=== PATIENT | male | born 1940 | race Caucasian/White ===

== ENCOUNTER 2017-05-26 10:01 | Day surgery (SDC) | payer MEDICARE, OTHER ==
[~2017-05-26 10:01] MED LIST: KETOROLAC TROMETHAMINE 0.45% 4 DROP/0.4 ML DROPERETTE OS PRN
[2017-05-26] MEDS ORDERED: EPINEPHRINE INJ/PF 1 MG/1 ML AMPULE ONE (10:12)
[2017-05-26] MEDS ORDERED: LIDOCAINE 1% INJ-PF (10 MG/ML) 30 ML SDV ONE (10:12)
[2017-05-26] MEDS ORDERED: CHONDR SU A NA/HYALUR INTRAOC KIT (SURGICARE) ONE (10:12)
[2017-05-26] MEDS: TROPICAMIDE 1% OPH SOLN 3 ML OS PRN ×3 (10:18→10:42)
[2017-05-26] MEDS: CYCLOPENTOLATE 0.2%/PHENYLEPHRINE 1% OPH SOLN 2 ML OS PRN ×3 (10:19→10:42)
[2017-05-26] MEDS: BESIFLOXACIN HCL 0.6% OPH SUSP 5 ML BOTTLE OS PRN ×3 (10:19→11:14)
[2017-05-26] MEDS: TETRACAINE HCL 0.5% OPH SOLN 2 ML OS PRN ×3 (10:20→10:54)
[2017-05-26] MEDS ORDERED: MIDAZOLAM 2 MG/2 ML INJ ONE (10:41)
--- NOTE | 2017-05-26 20:43 | [facility] OPERATIVE REPORT E ---
[facility] Operative Report NAME: MARY MEYER AGE: 76Y DATE OF SURGERY: 05/26/2017 ROOM: PREOPERATIVE DIAGNOSIS: CATARACT, LEFT EYE. POSTOPERATIVE DIAGNOSIS: CATARACT, LEFT EYE. OPERATION: Cataract extraction with intraocular lens implant of the left eye. SURGEON: DILAN YEBOAH M.D. ANESTHESIA: Topical. PROCEDURE: After obtaining appropriate consent, the patient's left eye was prepped and draped in sterile fashion as well as the surgeon in a sterile manner and cataract surgery was started. First a paracentesis blade was used to make a small side-port incision. Viscoelastic was used to inflate the anterior chamber. Next a 2.4 mm incision was made with the paracentesis blade. A continuous capsulorrhexis incision was made using a cystotome and Utrata forceps. Following this hydrodissection was carried out to make the lens fully loose and mobile and it was rotated 90 degrees. Following this, a nfiodn-pru-puvhffj technique was used to phacoemulsify the lens with a CDE of 5.35. The remaining cortex was removed with irrigation/aspiration. Provisc was instilled into the capsular bag to inflate the bag. A SN60WF, 19.5 diopter lens was placed. The remaining viscoelastic material was removed with irrigation/aspiration. Following this, a 10-0 nylon suture was used to close the incision and it was found to be watertight. Vigamox was instilled in the eye and a protective shield was placed over the eye. The patient returned to the postoperative recovery in stable condition. DICTATING PHYSICIAN: DILAN YEBOAH M.D. [id number] PHY#: [id number] 2015 ID: [id number] JOB#: [id number] ACCT: [id number] cc:DILAN YEBOAH M.D. >
--- NOTE | 2017-05-26 20:49 | [facility] DISCHARGE SUMMARY E ---
[facility] Discharge Summary NAME: MARY MEYER AGE: 76Y ADMITTED: 05/26/2017 DISCHARGED: 05/26/2017 HOSPITAL COURSE: This is 76-year-old patient who underwent cataract extraction of the left eye. DIAGNOSIS: CATARACT, LEFT EYE. He underwent surgery because he was having difficulty reading small print. DISCHARGE INSTRUCTIONS: He is to be on a regular diet. No bending at his waist, no heavy lifting. He should use Besivance, Ilevro, and Durezol at 3 p.m. and 8 p.m. and sleep with a rigid shield. I will see him for his 1 day postoperative tomorrow. DICTATING PHYSICIAN: DILAN YEBOAH M.D. [id number] PHY#: [id number] 2015 ID: [id number] JOB#: [id number] ACCT: [id number] cc:DILAN YEBOAH M.D. >
== END 2017-05-26 12:14 | disposition home or self-care (01) ==
LOC: SC 10:01
PROVIDERS: ATTEND Internal Medicine
PROC: 08RK3JZ Replacement of Left Lens with Synthetic Substitute, Percutaneous Approach (ICD-10-PCS; principal; 2017-05-26 11:30)
DX: H25.812 Combined forms of age-related cataract, left eye (principal); I10 Essential (primary) hypertension; F17.210 Nicotine dependence, cigarettes, uncomplicated; Z79.1 Long term (current) use of non-steroidal anti-inflammatories (NSAID)
CPT/HCPCS: 66984; V2632; J2250; J3490 ×2; A9270; J0171; 142

== ENCOUNTER 2017-06-30 07:06 | Day surgery (SDC) | payer MEDICARE, OTHER ==
[~2017-06-30 07:06] MED LIST changes: +KETOROLAC TROMETHAMINE 0.45% 4 DROP/0.4 ML DROPERETTE OD PRN; -KETOROLAC TROMETHAMINE 0.45% 4 DROP/0.4 ML DROPERETTE OS PRN
[2017-06-30] MEDS: CYCLOPENTOLATE 0.2%/PHENYLEPHRINE 1% OPH SOLN 2 ML OD PRN ×3 (07:55→08:15)
[2017-06-30] MEDS: BESIFLOXACIN HCL 0.6% OPH SUSP 5 ML BOTTLE OD PRN ×3 (07:55→08:51)
[2017-06-30] MEDS: TROPICAMIDE 1% OPH SOLN 3 ML OD PRN ×3 (07:55→08:15)
[2017-06-30] MEDS: TETRACAINE HCL 0.5% OPH SOLN 2 ML OD PRN ×3 (07:56→08:30)
[2017-06-30] MEDS ORDERED: CHONDR SU A NA/HYALUR INTRAOC KIT (SURGICARE) ONE (07:57)
[2017-06-30] MEDS ORDERED: LIDOCAINE 1% INJ-PF (10 MG/ML) 30 ML SDV ONE (07:57)
[2017-06-30] MEDS ORDERED: EPINEPHRINE INJ/PF 1 MG/1 ML AMPULE ONE (07:57)
[2017-06-30] MEDS ORDERED: MIDAZOLAM 2 MG/2 ML INJ ONE (08:12)
[2017-06-30] MEDS ORDERED: FENTANYL CITRATE INJ/PF 100 MCG/2 ML AMPUL ONE (08:12)
--- NOTE | 2017-06-30 19:34 | [facility] DISCHARGE SUMMARY E ---
[facility] Discharge Summary NAME: MARY MEYER AGE: 76Y ADMITTED: 06/30/2017 DISCHARGED: 06/30/2017 HOSPITAL COURSE: This is a 76-year-old patient who underwent cataract extraction of the right eye. DIAGNOSIS: CATARACT, RIGHT EYE. He underwent surgery because he was having difficulty with increased glare with bright lights. DISCHARGE INSTRUCTIONS: He should be on a regular diet. No bending at his waist, no heavy lifting. He should use Besivance, Ilevro, and Durezol at 3 p.m. and 8 p.m. and sleep with a rigid shield. I will see him for his 1 day postoperative tomorrow. DICTATING PHYSICIAN: DILAN YEBOAH M.D. [id number] [id number] PHY#: [id number] ID: [id number] JOB#: [id number] ACCT: [id number] cc:DILAN YEBOAH M.D. >
--- NOTE | 2017-06-30 19:34 | [facility] OPERATIVE REPORT E ---
[facility] Operative Report NAME: MARY MEYER AGE: 76Y DATE OF SURGERY: 06/30/2017 ROOM: PREOPERATIVE DIAGNOSIS: CATARACT, RIGHT EYE. POSTOPERATIVE DIAGNOSIS: CATARACT, RIGHT EYE. OPERATION: Cataract extraction with intraocular lens implant of the right eye. SURGEON: DILAN YEBOAH M.D. ANESTHESIA: Topical. PROCEDURE: After obtaining appropriate consent, the patient's right eye was prepped and draped in sterile fashion as well as the surgeon in a sterile manner and cataract surgery was started. First a paracentesis blade was used to make a small side-port incision. Viscoelastic was used to inflate the anterior chamber. Next a 2.4 mm incision was made with the paracentesis blade. A continuous capsulorrhexis incision was made using a cystotome and Utrata forceps. Following this hydrodissection was carried out to make the lens fully loose and mobile and it was rotated 90 degrees. Following this, a uxskpk-jul-wdaeuxl technique was used to phacoemulsify the lens with a CDE of 8.44. The remaining cortex was removed with irrigation/aspiration. Provisc was instilled into the capsular bag to inflate the bag. A SN60WF, 20.0 diopter lens was placed. The remaining viscoelastic material was removed with irrigation/aspiration. Following this, a 10-0 nylon suture was used to close the incision and it was found to be watertight. Vigamox was instilled in the eye and a protective shield was placed over the eye. The patient returned to the postoperative recovery in stable condition. DICTATING PHYSICIAN: DILAN YEBOAH M.D. [id number] [id number] PHY#: [id number] ID: [id number] JOB#: [id number] ACCT: [id number] cc:DILAN YEBOAH M.D. >
== END 2017-06-30 09:33 | disposition home or self-care (01) ==
LOC: SC 07:06
PROVIDERS: ATTEND Internal Medicine
PROC: 08RJ3JZ Replacement of Right Lens with Synthetic Substitute, Percutaneous Approach (ICD-10-PCS; principal; 2017-06-30 08:30)
DX: H25.811 Combined forms of age-related cataract, right eye (principal)
CPT/HCPCS: 66984; V2632; J2250; J3490 ×2; A9270; J0171; J3010; 142

== ENCOUNTER 2019-07-03 02:05 | Emergency (ER) | payer MEDICARE, OTHER ==
[2019-07-03 02:29] VITALS: BP 123/58
[2019-07-03 03:01] LABS: HEMATOCRIT 40.4 % (37.9-51.0); HEMOGLOBIN 13.8 g/dL (13.5-17.0); MEAN CORPUSCULAR HEMOGLOBIN 32.5 pg (27.0-33.4); MEAN CORPUSCULAR HGB CONC 34.3 g/dL (32.0-36.0); MEAN CORPUSCULAR VOLUME 95 fl (80-97); PLATELET COUNT 299 10^3/uL (150-450); RED BLOOD COUNT 4.26 10^6/uL (4.35-5.55); RED CELL DISTRIBUTION WIDTH 13.7 % (11.5-14.0); WHITE BLOOD COUNT 22.3 10^3/uL (4.0-10.5)
[2019-07-03 03:04] LABS: APPEARANCE,URINE CLOUDY; BILIRUBIN,URINE NEGATIVE (NEGATIVE); COLOR,URINE YELLOW; GLUCOSE, URINE NEGATIVE (NEGATIVE); KETONES,URINE NEGATIVE (NEGATIVE); LEUKOCYTE ESTERASE,URINE LARGE (NEGATIVE); NITRITE,URINE POSITIVE (NEGATIVE); PROTEIN,URINE 100 mg/dL (NEGATIVE); URINE SPECIFIC GRAVITY 1.011; UROBILINOGEN,URINE NEGATIVE mg/dL (<2.0)
[2019-07-03 03:18] LABS: ALBUMIN 3.2 g/dL (3.5-5.0); ALKALINE PHOSPHATASE 87 U/L (38-126); ANION GAP 11 (5-19); ASPARTATE AMINO TRANSFERASE 20 U/L (17-59); BILIRUBIN,DIRECT 0.2 mg/dL (0.0-0.4); BILIRUBIN,TOTAL 0.8 mg/dL (0.2-1.3); BLOOD UREA NITROGEN 22 mg/dL (7-20); CARBON DIOXIDE 28 mmol/L (22-30); CHLORIDE 100 mmol/L (98-107); GLUCOSE 109 mg/dL (75-110); POTASSIUM 4.1 mmol/L (3.6-5.0); TOTAL PROTEIN 6.4 g/dL (6.3-8.2)
[2019-07-03 03:32] LABS: ABSOLUTE LYMPHOCYTES# (MANUAL) 1.6 10^3/uL (0.5-4.7); ABSOLUTE MONOCYTES # (MANUAL) 0.9 10^3/uL (0.1-1.4); BASOPHILS % (MANUAL) 0 % (0-2); EOSINOPHILS % (MANUAL) 0 % (0-6); LYMPHOCYTES % (MANUAL) 7 % (13-45); MONOCYTES % (MANUAL) 4 % (3-13); SEGMENTED NEUTROPHILS % (MAN) 89 % (42-78); TOTAL CELLS COUNTED 100
[2019-07-03 03:33] LABS: PLATELET COMMENT ADEQUATE
== END 2019-07-03 03:15 | disposition left against medical advice (07) ==
LOC: ER 02:05
DX: Z53.21 Procedure and treatment not carried out due to patient leaving prior to being seen by health care provider (principal)
CPT/HCPCS: 36415; 80053; 81001; 83690; 85025

== ENCOUNTER 2019-08-15 11:28 | Inpatient (IN) | payer MEDICARE, OTHER ==
--- NOTE | 2019-08-15 12:27 | ER Document Report ---
ED Medical Screen (RME) - General Chief Complaint: Back Pain Stated Complaint: BACK AND SHOULDER PAIN Time Seen by Provider: 08/15/19 12:22 Primary Care Provider: MARY VILLEDA [Primary Care Provider] - Follow up as needed Mode of Arrival: Ambulatory Information source: Patient Notes: 78-year-old male presented to ED for complaint of pain to right shoulder and upper back. He states he has had this pain for about 6 months. He states he has not fallen or injured it. He states he has not followed up with his primary care yet. He is alert oriented respirations regular nonlabored speaking in full sentences. Patient states he is also lost significant amount of weight in the long last week. He states he just has no appetite and cannot eat. He states he used to pop a lot of Motrin and ate the lining of his stomach so now he has a lot of problems with his stomach. I have greeted and performed a rapid initial assessment of this patient. A comprehensive ED assessment and evaluation of the patient, analysis of test results and completion of medical decision making process will be conducted by an additional ED providers. TRAVEL OUTSIDE OF THE [place] IN LAST 30 DAYS: No - Related Data Allergies/Adverse Reactions: No Known Allergies Allergy (Verified 08/15/19 12:24) Past Medical History - Past Medical History Cardiac Medical History: Reports: Hx Hypertension Denies: Hx Heart Attack Pulmonary Medical History: Denies: Hx Asthma Neurological Medical History: Denies: Hx Cerebrovascular Accident, Hx Seizures GI Medical History: Reports: Hx Ulcer - SURG. Denies: Hx Hepatitis, Hx Hiatal Hernia Infectious Medical History: Denies: Hx Hepatitis Past Surgical History: Denies: Hx Open Heart Surgery, Hx Pacemaker Physical Exam - Vital signs Vitals: Temp Pulse Resp BP Pulse Ox 97.6 F 106 H 18 140/63 H 100 08/15/19 11:33 08/15/19 11:33 08/15/19 11:33 08/15/19 11:33 08/15/19 11:33 Course - Vital Signs Vital signs: Temp Pulse Resp BP Pulse Ox 97.6 F 106 H 18 140/63 H 100 08/15/19 11:33 08/15/19 11:33 08/15/19 11:33 08/15/19 11:33 08/15/19 11:33 Doctor's Discharge - Discharge Referrals: LOCALMD,NO [Primary Care Provider] - Follow up as needed
[2019-08-15 13:03] LABS: HEMOGLOBIN 11.9 g/dL (13.5-17.0); MEAN CORPUSCULAR HEMOGLOBIN 29.6 pg (27.0-33.4); MEAN CORPUSCULAR HGB CONC 33.2 g/dL (32.0-36.0); MEAN CORPUSCULAR VOLUME 89 fl (80-97); PLATELET COUNT 418 10^3/uL (150-450); RED BLOOD COUNT 4.03 10^6/uL (4.35-5.55); RED CELL DISTRIBUTION WIDTH 15.1 % (11.5-14.0)
[2019-08-15 13:10] LABS: APPEARANCE,URINE SLIGHTLY-CLOUDY; BILIRUBIN,URINE NEGATIVE (NEGATIVE); COLOR,URINE AMBER; GLUCOSE, URINE NEGATIVE (NEGATIVE); KETONES,URINE TRACE mg/dL (NEGATIVE); PROTEIN,URINE 30 mg/dL (NEGATIVE); URINE SPECIFIC GRAVITY 1.013
[2019-08-15 13:19] LABS: ALBUMIN 3.3 g/dL (3.5-5.0); ALKALINE PHOSPHATASE 93 U/L (38-126); ANION GAP 10 (5-19); ASPARTATE AMINO TRANSFERASE 26 U/L (17-59); BILIRUBIN,DIRECT 0.3 mg/dL (0.0-0.4); BLOOD UREA NITROGEN 23 mg/dL (7-20); CALCIUM 8.9 mg/dL (8.4-10.2); CARBON DIOXIDE 27 mmol/L (22-30); CHLORIDE 94 mmol/L (98-107); GLUCOSE 100 mg/dL (75-110); POTASSIUM 4.6 mmol/L (3.6-5.0); TOTAL PROTEIN 6.9 g/dL (6.3-8.2)
--- NOTE | 2019-08-15 13:25 | RADIOLOGY REPORT (SQ) ---
EXAM DESCRIPTION: SHOULDER RIGHT 2 OR MORE VIEWS COMPLETED DATE/TIME: 08/15/2019 1:12 pm REASON FOR STUDY: pain increasing to neck back andshoulder COMPARISON: None. NUMBER OF VIEWS: Three views. TECHNIQUE: Internal rotation, external rotation, and Y view images acquired of the right shoulder. LIMITATIONS: None. FINDINGS: MINERALIZATION: Osteopenia. BONES: No acute fracture. No worrisome bone lesions. Acromioclavicular and glenohumeral osteoarthro giovani JOINTS: No dislocation. Decreased subacromial space. VISUALIZED LUNGS AND RIBS: No pneumothorax. No rib fracture. SOFT TISSUES: No radiopaque foreign body. OTHER: No other significant finding. IMPRESSION: No acute bony abnormality. 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 TECHNICAL DOCUMENTATION: JOB ID: [id number] [employer]- All Rights Reserved Reading location - IP/workstation name: [email or web address]
--- NOTE | 2019-08-15 13:27 | RADIOLOGY REPORT (SQ) ---
EXAM DESCRIPTION: T SPINE AP/LAT COMPLETED DATE/TIME: 08/15/2019 1:12 pm REASON FOR STUDY: pain increaseing to neck back andshoulder COMPARISON: None. NUMBER OF VIEWS: Two views. TECHNIQUE: AP and lateral radiographic images acquired of the thoracic spine. LIMITATIONS: None. FINDINGS: MINERALIZATION: Osteopenia. ALIGNMENT: Exaggerated thoracic kyphosis. VERTEBRAE: No definite compression fracture. Prominent anterolateral osteophyte at the midthoracic s pine. DISCS: Multilevel disc height loss. HARDWARE: None in the spine. MEDIASTINUM AND SOFT TISSUES: Normal heart size and aortic contour. Vascular calcifications. VISUALIZED LUNG EVANS: Clear. OTHER: No other significant finding. IMPRESSION: No definite acute bony abnormality. Degenerative changes with multilevel disc height loss and prominent anterolateral osteophyte at the m idthoracic spine. Decreased osseous mineralization. TECHNICAL DOCUMENTATION: JOB ID: [id number] [employer]- All Rights Reserved Reading location - IP/workstation name: [email or web address]
--- NOTE | 2019-08-15 13:39 | RADIOLOGY REPORT (SQ) ---
EXAM DESCRIPTION: CERV SP 3 VIEW OR LESS COMPLETED DATE/TIME: 08/15/2019 1:12 pm REASON FOR STUDY: pain increaseing to neck back andshoulder COMPARISON: None. NUMBER OF VIEWS: Three views. TECHNIQUE: AP, lateral and odontoid radiographic images acquired of the cervical spine. LIMITATIONS: C7 not well evaluated on the lateral projection. FINDINGS: MINERALIZATION: Decreased. ALIGNMENT: Straightening of the normal cervical lordosis. VERTEBRAE: No definite fracture. DISCS: Multilevel disc height loss and osteophytosis greatest at C5-6. Multilevel facet and uncovert ebral hypertrophy. HARDWARE: None in the spine. SOFT TISSUES: Vascular calcifications. No discrete masses. OTHER: No other significant finding. IMPRESSION: 1. No definite acute bony abnormality of the cervical spine. 2. Moderate to severe multilevel degenerative change greatest at C5-6. Multilevel facet arthropathy . TECHNICAL DOCUMENTATION: JOB ID: [id number] [employer]- All Rights Reserved Reading location - IP/workstation name: [email or web address]
[2019-08-15 13:40] LABS: ABSOLUTE LYMPHOCYTES# (MANUAL) 2.8 10^3/uL (0.5-4.7); ABSOLUTE MONOCYTES # (MANUAL) 1.2 10^3/uL (0.1-1.4); BASOPHILS % (MANUAL) 0 % (0-2); EOSINOPHILS % (MANUAL) 0 % (0-6); LYMPHOCYTES % (MANUAL) 11 % (13-45); MONOCYTES % (MANUAL) 5 % (3-13); SEGMENTED NEUTROPHILS % (MAN) 83 % (42-78); TOTAL CELLS COUNTED 100
[2019-08-15 13:41] LABS: PLATELET COMMENT ADEQUATE; SCHISTOCYTES SLIGHT
[2019-08-15 13:42] LABS: ANISOCYTOSIS SLIGHT
[2019-08-15 13:44] LABS: OVALOCYTES SLIGHT
--- NOTE | 2019-08-15 17:16 | ER Document Report ---
ED General - General Chief Complaint: Back Pain Stated Complaint: BACK AND SHOULDER PAIN Time Seen by Provider: 08/15/19 12:22 Primary Care Provider: MARY VILLEDA [NO DEEPTI MD] - Follow up as needed Mode of Arrival: Ambulatory Notes: Patient is a 78-year-old male with a history of COPD who presents emergency department with multiple complaints. Patient reports he has had right shoulder and left lower back pain for quite a while. Patient unsure how long. Patient denies fall or trauma. Patient also reports having a significant weight loss over the past month and a half of greater than 20 pounds. Patient reports a decreased appetite. Patient reports he does smoke about 2-1/2 packs of cigarettes per day. Patient reports he is also had some urinary frequency. Patient denies fever. Patient reports he did vomit yesterday after eating a meal but that he has tolerated foods and liquids since then. Patient reports a productive cough with a significant amount of clear sputum that has increased over the past month. Patient reports he does drink occasional alcohol but does not do any recreational drugs. TRAVEL OUTSIDE OF THE [place] IN LAST 30 DAYS: No - Related Data Allergies/Adverse Reactions: No Known Allergies Allergy (Verified 08/15/19 12:24) Home Medications: unknown Past Medical History - General Information source: Patient - Social History Smoking Status: Current Every Day Smoker Chew tobacco use (# tins/day): No Frequency of alcohol use: None Drug Abuse: None Lives with: Alone Family History: None Patient has suicidal ideation: No Patient has homicidal ideation: No - Past Medical History Cardiac Medical History: Reports: None Denies: Hx Heart Attack Pulmonary Medical History: Reports: Hx COPD Denies: Hx Asthma EENT Medical History: Reports: None Neurological Medical History: Reports: None. Denies: Hx Cerebrovascular Accident, Hx Seizures Endocrine Medical History: Reports: None Renal/ Medical History: Reports: None Malignancy Medical History: Reports None GI Medical History: Reports: Hx Ulcer - SURG. Denies: Hx Hepatitis, Hx Hiatal Hernia Musculoskeletal Medical History: Reports None Skin Medical History: Reports None Psychiatric Medical History: Reports: None Traumatic Medical History: Reports: None Infectious Medical History: Reports: None. Denies: Hx Hepatitis Past Surgical History: Denies: Hx Open Heart Surgery, Hx Pacemaker Review of Systems - Review of Systems Constitutional: See HPI EENT: No symptoms reported Cardiovascular: No symptoms reported Respiratory: See HPI Gastrointestinal: See HPI Genitourinary: See HPI Male Genitourinary: No symptoms reported Musculoskeletal: See HPI Skin: No symptoms reported Hematologic/Lymphatic: No symptoms reported Neurological/Psychological: No symptoms reported Physical Exam - Vital signs Vitals: Temp Pulse Resp BP Pulse Ox 97.6 F 106 H 18 140/63 H 100 08/15/19 11:33 08/15/19 11:33 08/15/19 11:33 08/15/19 11:33 08/15/19 11:33 Interpretation: Tachycardic - Slightly tachycardic initially with a heart rate of 106. - Notes Notes: GENERAL: Well-appearing, well-nourished and in no acute distress. HEAD: Atraumatic, normocephalic. EYES: Pupils equal round and reactive to light, extraocular movements intact, sclera anicteric, conjunctiva are normal. ENT: Nares patent, oropharynx clear without exudates. Moist mucous membranes. NECK: Normal range of motion, supple without lymphadenopathy or JVD. LUNGS: Breath sounds clear to auscultation bilaterally and equal. No wheezes r ales or rhonchi. HEART: Regular rate and rhythm without murmurs, rubs or gallops. ABDOMEN: Soft, nontender, normoactive bowel sounds. Healed midline vertical scar noted to the mid to upper abdomen. No guarding, no rebound. No masses appreciated. BACK: Patient has very mild tenderness to the cervical and thoracic spine. Midline patient does not have lumbar midline tenderness. Patient does have left lower lumbar muscle tenderness with palpation. No saddle anesthesia, normal distal neurovascular exam. There is no CVA tenderness. GENITOURINARY: Deferred. EXTREMITIES: Patient has limited range of motion to the right shoulder, states that he is unable to raise his arm above the shoulder level due to pain. Patient has diffuse mild tenderness to the right shoulder. There is no erythema, edema or ecchymosis. No obvious deformity. No edema. NEUROLOGICAL: Cranial nerves II through XII grossly intact. Normal speech, normal gait. PSYCH: Normal mood, normal affect. SKIN: Warm, Dry, normal turgor, no rashes or lesions noted. Course - Re-evaluation Re-evalutation: 08/15/19 17:42 I did speak with Dr. Castro who will come down to the ER for admission. I did re- evaluate the patient spine which did not show a significant tenderness to the cervical, thoracic, lumbar spine. Patient states that most of his pain and is in his right shoulder. My concern for admission is that the patient appears to be slightly dehydrated with an elevated creatinine, UTI, elevated white count of 23.0. Patient is nontoxic-appearing. I have ordered repeat vital signs. Patient aware of admission. Patient did ask if he was able to go outside and smoke a cigarette. Patient reports she smokes about 2-1/2 packs of cigarettes per day. I did inform him that he is not medically cleared and he cannot go outside. Patient was understanding and calm at this time. Will order initial dose of IV antibiotics for the UTI, IV fluids as well as a nicotine patch. During my evaluation patient became tearful and stated that over the past 2 y ears he has felt a feeling of "not wanting to live." Patient reports 2 years ago his did pass away. Patient reports he does go to his primary care physician in [place] but has never mentioned this to them. Patient reports he does not have thoughts of hurting himself or others. Patient denies suicidal plan. Patient reports he would never hurt himself. Patient denies a history of suicidal attempt. Dr. Castro, the admitting was made aware. 08/15/19 18:16 Dr. Castro to admit. 08/15/19 18:28 Mental health consult placed. - Vital Signs Vital signs: Temp Pulse Resp BP Pulse Ox 97.6 F 106 H 18 140/63 H 100 08/15/19 11:33 08/15/19 11:33 08/15/19 11:33 08/15/19 11:33 08/15/19 11:33 - Laboratory Result Diagrams: 08/15/19 12:35 08/15/19 12:35 Laboratory results interpreted by me: 08/15/19 08/15/19 08/15/19 12:35 12:35 12:35 WBC 23.0 H RBC 4.03 L Hgb 11.9 L Hct 36.0 L RDW 15.1 H Seg Neuts % (Manual) 83 H Lymphocytes % (Manual) 11 L Abs Neuts (Manual) 19.1 H Sodium 131.3 L Chloride 94 L BUN 23 H Creatinine 1.60 H Est GFR ( Amer) 51 L Est GFR (MDRD) Non-Af 42 L Albumin 3.3 L Urine Protein 30 H Urine Ketones TRACE H Urine Urobilinogen 2.0 H Leukocyte Esterase Rfl MODERATE H 08/15/19 17:49 Patient does have a leukocytosis of 23. Patient's BUN and creatinine are slightly elevated. Sodium is low at 131.3. Patient's urinalysis does show trace ketones with a moderate amount of leukocytes with 80 WBCs and 3+ bacteria. Laboratory 08/15/19 08/15/19 08/15/19 12:35 12:35 12:35 WBC 23.0 H RBC 4.03 L Hgb 11.9 L Hct 36.0 L MCV 89 MCH 29.6 MCHC 33.2 RDW 15.1 H Plt Count 418 Lymph % (Auto) Not Reportable [place] % (Auto) Not Reportable Eos % (Auto) Not Reportable Baso % (Auto) Not Reportable Absolute Neuts (auto) Not Reportable Absolute Lymphs (auto) Not Reportable Absolute Monos (auto) Not Reportable Absolute Eos (auto) Not Reportable Absolute Basos (auto) Not Reportable Total Counted 100 Seg Neutrophils % Not Reportable Seg Neuts % (Manual) 83 H Lymphocytes % (Manual) 11 L Atypical Lymphs % 1 Monocytes % (Manual) 5 Eosinophils % (Manual) 0 Basophils % (Manual) 0 Abs Neuts (Manual) 19.1 H Abs Lymphs (Manual) 2.8 Abs Monocytes (Manual) 1.2 Absolute Eos (Manual) 0.0 Abs Basophils (Manual) 0.0 Platelet Comment ADEQUATE Anisocytosis SLIGHT Ovalocytes SLIGHT Schistocytes SLIGHT Sodium 131.3 L Potassium 4.6 Chloride 94 L Carbon Dioxide 27 Anion Gap 10 BUN 23 H Creatinine 1.60 H Est GFR ( Amer) 51 L Est GFR (MDRD) Non-Af 42 L Glucose 100 Calcium 8.9 Total Bilirubin 1.0 Direct Bilirubin 0.3 Neonat Total Bilirubin Not Reportable Neonat Direct Bilirubin Not Reportable Neonat Indirect Bili Not Reportable AST 26 ALT 14 Alkaline Phosphatase 93 Total Protein 6.9 Albumin 3.3 L Lipase 142.2 Urine Color RON Urine Appearance SLIGHTLY-CLOUDY Urine pH 5.0 Ur Specific [place] 1.013 Urine Protein 30 H Urine Glucose (UA) NEGATIVE Urine Ketones TRACE H Urine Blood NEGATIVE Urine Nitrite (Reflex) NEGATIVE Urine Bilirubin NEGATIVE Urine Urobilinogen 2.0 H Leukocyte Esterase Rfl MODERATE H Urine RBC (Auto) 2 U Hyaline Cast (Auto) 13 Urine Bacteria (Auto) 3+ Urine WBC (Reflex) 80 Urine Mucus (Auto) MOD Urine Ascorbic Acid NEGATIVE - Diagnostic Test Radiology reviewed: Reports reviewed Radiology results interpreted by me: 08/15/19 17:49 Cervical Spine X-Ray 08/15/19 12:28 IMPRESSION: 1. No definite acute bony abnormality of the cervical spine. 2. Moderate to severe multilevel degenerative change greatest at C5-6. Multilevel facet arthropathy. Shoulder X-Ray 08/15/19 12:28 IMPRESSION: No acute bony abnormality. 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 Thoracic Spine X-Ray 08/15/19 12:28 IMPRESSION: No definite acute bony abnormality. Degenerative changes with multilevel disc height loss and prominent anterolateral osteophyte at the midthoracic spine. Decreased osseous mineralization. Discharge - Discharge Clinical Impression: Chronic right shoulder pain, Smoking addiction UTI (urinary tract infection) Qualifiers: Urinary tract infection type: site unspecified Hematuria presence: without hematuria Qualified Code(s): N39.0 - Urinary tract infection, site not specified Chronic back pain Qualifiers: Back pain location: thoracic back pain Back pain laterality: midline Qualified Code(s): M54.6 - Pain in thoracic spine; G89.29 - Other chronic pain Leukocytosis Qualifiers: Leukocytosis type: unspecified Qualified Code(s): D72.829 - Elevated white blood cell count, unspecified COPD (chronic obstructive pulmonary disease) Qualifiers: COPD type: unspecified COPD Qualified Code(s): J44.9 - Chronic obstructive pulmonary disease, unspecified Condition: Stable Disposition: ADMITTED OBSERVATION Admitting Provider: Gloria (Hospitalist) Unit Admitted: Medical Floor Referrals: LOCALMD,NO [NO LOCAL MD] - Follow up as needed
[2019-08-15] MEDS ORDERED: CEFTRIAXONE 1 GM/D5W RTU 1 GM/50 ML RTUPB IV ONE (17:33)
[2019-08-15] MEDS ORDERED: NORMAL SALINE 1000 ML 1,000 ML IV ONE (17:33)
[2019-08-15] MEDS ORDERED: NICOTINE 21 MG/24 HR PATCH.TD24 TD ONE (17:35)
--- NOTE | 2019-08-15 18:06 | RADIOLOGY REPORT (SQ) ---
EXAM DESCRIPTION: CHEST 2 VIEWS COMPLETED DATE/TIME: 08/15/2019 5:46 pm REASON FOR STUDY: productive cough, weight loss COMPARISON: None. EXAM PARAMETERS: NUMBER OF VIEWS: two views TECHNIQUE: Digital Frontal and Lateral radiographic views of the chest acquired. RADIATION DOSE: NA LIMITATIONS: none FINDINGS: LUNGS AND PLEURA: No opacities, masses or pneumothorax. No pleural effusion. MEDIASTINUM AND HILAR STRUCTURES: Slightly unusual appearance in the right hilum. On the lateral vie w there is opacification overlying the spine that has the appearance of the large osteophytes. HEART AND VASCULAR STRUCTURES: Heart normal size. No evidence for failure. BONES: No acute findings. HARDWARE: None in the chest. OTHER: No other significant finding. IMPRESSION: No acute cardiopulmonary findings. Unusual appearance of the right hilum may be seconda ry to large thoracic spine osteophytes. Consider CT if clinically indicated. TECHNICAL DOCUMENTATION: JOB ID: [id number] [employer]- All Rights Reserved Reading location - IP/workstation name: [email or web address]
[2019-08-15] MEDS ORDERED: IPRATROPIUM/ALBUTEROL 0.5-2.5 MG/3 ML AMPUL NEB PRN (18:32)
--- NOTE | 2019-08-15 18:36 | PDOC H&P ---
History of Present Illness Patient complains of: multiple complaints History of Present Illness: MARY MEYER is a 78 year old male with a past medical history of COPD not on home O2, history of hyperthyroidism with prior thyroidectomy and chronic heavy cigarette smoking who is presenting with multiple complaints. Upon encounter, patient appears comfortable in room air. When asked what his main symptoms are reasons of going to the ER, he says that he has been having chronic worsening of his right shoulder pain and left flank pain. He says that he has been having right shoulder pain for more than 3 months now and it has progressed to the point that he can barely abduct his right shoulder. He says that he also has been dealing with this left flank pain for the past 5 months and this is been slowly worsening as well to the point that he cannot lay on his left side. He denies pain along the spine. There is no spinal tenderness on palpation. He reports he also has been having urinary frequency for the past 4 weeks. He denies hematuria, dysuria or urgency. He denies having fever but reports he has been having chills for the past 3 months. He says he has chills occasionally at night but also has chills when he wakes up in the morning. He reports he has lost 60 pounds over the past 3 to 4 months. He admits to having poor oral intake for the past few weeks. When asked why this is so, he says he just does not have the appetite. He denies he has depressed mood. Clarified the statement from the staff when he remarked that he does not have drive to continue living, and he commented he meant he does not care if he dies but verbalizes he does not have any suicidal ideation nor thoughts of harming himself. He denies any hallucination or delusions or homicidal ideations. When asked why this is so, he says that he has lived his life and he does not particularly care if he rejoins his who has more than 2 years ago. He does not think he is depressed. He verbalizes he actually has a directive and is a DNR/DNI. He verbalizes he does not want any form of resuscitation including chest compressions, defibrillation or mechanical ventilation if the need arises. He also verbalizes he does not want to ever be sent or discharged to a senior care or a long-term facility in the future. He says his stepdaughter, Jillian De Los Santos in [place], [place] is his surrogate decision severo jacob. He also reports of minimally productive cough for the past 2 to 3 months. He says he used to smoke more than 2 packs of cigarettes a day but has now gone down to 1 and half pack a day. He only occasionally drinks beer or wine. He denies recreational drug use. In the ER, work-up was remarkable for leukocytosis and acute renal failure. UA did show pyuria and bacteriuria. X- rays showed degenerative changes and chronic rotator cuff loss. Past Medical History Cardiac Medical History: Reports: None, Hypertension Denies: Myocardial Infarction Pulmonary Medical History: Reports: Chronic Obstructive Pulmonary Disease (COPD) Denies: Asthma EENT Medical History: Reports: None Neurological Medical History: Reports: None Denies: Seizures Endocrine Medical History: Reports: None Renal/ Medical History: Reports: None Malignancy Medical History: Reports: None GI Medical History: Denies: Hepatitis, Hiatal Hernia Musculoskeltal Medical History: Reports: None Skin Medical History: Reports: None Psychiatric Medical History: Reports: None Traumatic Medical History: Reports: None Hematology: Denies: Anemia, Sickle Cell Disease Infectious Medical History: Reports: None Past Surgical History Past Surgical History: Denies: Pacemaker Social History Lives with: Alone Smoking Status: Current Every Day Smoker Electronic Cigarette use?: No Family History Family History: None Parental Family History Reviewed: Yes - no premature CAD Children Family History Reviewed: No Sibling(s) Family History Reviewed.: No Medication/Allergy Allergies/Adverse Reactions: No Known Allergies Allergy (Verified 08/15/19 12:24) Review of Systems All systems: reviewed and no additional remarkable complaints except as stated - as mentioned in HPI Physical Exam Vital Signs: Temp Pulse Resp BP Pulse Ox 97.6 F 106 H 18 140/63 H 100 08/15/19 11:33 08/15/19 11:33 08/15/19 11:33 08/15/19 11:33 08/15/19 11:33 Intake & Output 08/14/19 08/15/19 08/16/19 06:59 06:59 06:59 Weight 161 lb 6.054 oz General appearance: PRESENT: no acute distress, well-developed, well-nourished Head exam: PRESENT: atraumatic, normocephalic Eye exam: PRESENT: conjunctiva pink, EOMI, PERRLA. ABSENT: scleral icterus Ear exam: PRESENT: normal external ear exam Mouth exam: PRESENT: moist, tongue midline Neck exam: ABSENT: carotid bruit, JVD, lymphadenopathy, thyromegaly Respiratory exam: PRESENT: clear to auscultation samuel. ABSENT: rales, rhonchi, wheezes Cardiovascular exam: PRESENT: RRR. ABSENT: diastolic murmur, rubs, systolic murmur Pulses: PRESENT: normal dorsalis pedis pul GI/Abdominal exam: PRESENT: normal bowel sounds, soft. ABSENT: distended, guarding, mass, organolmegaly, rebound, tenderness Rectal exam: PRESENT: deferred Neurological exam: PRESENT: alert, awake, oriented to person, oriented to place, oriented to time, oriented to situation, CN II-XII grossly intact. ABSENT: motor sensory deficit Results Laboratory Results: 08/15/19 12:35 08/15/19 12:35 08/15/19 08/15/19 08/15/19 12:35 12:35 12:35 WBC 23.0 H RBC 4.03 L Hgb 11.9 L Hct 36.0 L MCV 89 MCH 29.6 MCHC 33.2 RDW 15.1 H Plt Count 418 Seg Neutrophils % Not Reportable Sodium 131.3 L Potassium 4.6 Chloride 94 L Carbon Dioxide 27 Anion Gap 10 BUN 23 H Creatinine 1.60 H Est GFR ( Amer) 51 L Glucose 100 Calcium 8.9 Total Bilirubin 1.0 AST 26 Alkaline Phosphatase 93 Total Protein 6.9 Albumin 3.3 L Lipase 142.2 Urine Color RON Urine Appearance SLIGHTLY-CLOUDY Urine pH 5.0 Ur Specific [place] 1.013 Urine Protein 30 H Urine Glucose (UA) NEGATIVE Urine Ketones TRACE H Urine Blood NEGATIVE Urine RBC (Auto) 2 Impressions: Cervical Spine X-Ray 08/15/19 12:28 IMPRESSION: 1. No definite acute bony abnormality of the cervical spine. 2. Moderate to severe multilevel degenerative change greatest at C5-6. Multilevel facet arthropathy. Shoulder X-Ray 08/15/19 12:28 IMPRESSION: No acute bony abnormality. 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 Thoracic Spine X-Ray 08/15/19 12:28 IMPRESSION: No definite acute bony abnormality. Degenerative changes with multilevel disc height loss and prominent anterolateral osteophyte at the midthoracic spine. Decreased osseous mineralization. Chest X-Ray 08/15/19 17:34 IMPRESSION: No acute cardiopulmonary findings. Unusual appearance of the right hilum may be secondary to large thoracic spine osteophytes. Consider CT if clinically indicated. Assessment and Plan - Diagnosis (1) Acute renal failure Is this a current diagnosis for this admission?: Yes Plan: Possibly prerenal as patient does report he has been eating intravenous in the past several weeks. He does complain of chronic left flank pain. Will pursue a CT of the abdomen and pelvis to rule out obstructive causes. (2) COPD (chronic obstructive pulmonary disease) Qualifiers: COPD type: unspecified COPD Qualified Code(s): J44.9 - Chronic obstructive pulmonary disease, unspecified Is this a current diagnosis for this admission?: Yes Plan: Not in exacerbation. Breathing treatments as needed. (3) UTI (urinary tract infection) Qualifiers: Urinary tract infection type: site unspecified Hematuria presence: without hematuria Qualified Code(s): N39.0 - Urinary tract infection, site not specified Is this a current diagnosis for this admission?: Yes Plan: Continue IV Rocephin. Urine culture sent. (4) Chronic right shoulder pain Is this a current diagnosis for this admission?: Yes - Time Time Spent with patient: 25-34 minutes
--- NOTE | 2019-08-15 18:51 | ADVANCED CARE ---
- Diagnosis (1) Acute renal failure Diagnosis Current: Yes (2) COPD (chronic obstructive pulmonary disease) Diagnosis Current: Yes (3) UTI (urinary tract infection) Diagnosis Current: Yes (4) Chronic right shoulder pain Diagnosis Current: Yes Resuscitation Status: Do Not Resuscitate Discussion: He verbalizes he actually has a directive and is a DNR/DNI. He verbalizes he does not want any form of resuscitation including chest compressions, defibrillation or mechanical ventilation if the need arises. He also verbalizes he does not want to ever be sent or discharged to a prison or a long-term facility in the future. He says his stepdaughter, Jillian De Los Santos in [place], [place] is his surrogate decision maker.
--- NOTE | 2019-08-15 19:19 | RADIOLOGY REPORT (SQ) ---
EXAM DESCRIPTION: CT CHEST WITHOUT COMPLETED DATE/TIME: 08/15/2019 6:48 pm REASON FOR STUDY: cough, wt loss COMPARISON: Chest x-ray 08/15/2019 TECHNIQUE: CT scan performed of the chest without intravenous contrast. Images reviewed with lung, soft tissue and bone windows. Reconstructed coronal and sagittal MPR images reviewed. All images st ored on PACS. All CT scanners at this facility use dose modulation, iterative reconstruction, and/or weight based d osing when appropriate to reduce radiation dose to as low as reasonably achievable (ALARA). [facility]: Dose Right [facility]: CareDose [facility]: Dose Right [facility]: Teradose 4D [facility]: [employer] RADIATION DOSE: CT Rad equipment meets quality standard of care and radiation dose reduction techniq ues were employed. CTDIvol: 9.2 mGy. DLP: 651 mGy-cm. mGy. LIMITATIONS: No technical limitations. FINDINGS: LUNGS AND PLEURA: The lungs are hyperexpanded. There is no infiltrate, effusion, or signi ficant mass. A 4 mm pulmonary nodule is seen in the right lower lobe laterally on image 37 series 4. HILAR AND MEDIASTINAL STRUCTURES: No identified masses or abnormal nodes. No obvious aneurysm. HEART AND VASCULAR STRUCTURES: No aneurysm. No pericardial effusion. UPPER ABDOMEN: See separate report of the CT of the abdomen. THYROID AND OTHER SOFT TISSUES: No masses. No adenopathy. BONES: There is a very large osteophytes in the midthoracic spine. HARDWARE: None in the chest. OTHER: No other significant findings. IMPRESSION: Chronic lung changes. Thoracic spondylosis. 4 mm right pulmonary nodule. COMMENT: F[place]CHNER CRITERIA FOR FOLLOW-UP OF PULMONARY NODULES Incidentally detected new nodules in persons 35 or older. HIGH RISK: History of smoking or other known risk factors. <6 mm single solid nodule: LOW RISK: no routine followup. HIGH RISK: optional CT 12 mo. TECHNICAL DOCUMENTATION: JOB ID: [id number] Quality ID # [id number]: Final reports with documentation of one or more dose reduction techniques (e.g., Au tomated exposure control, adjustment of the mA and/or kV according to patient size, use of iterative reconstruction technique) 2010 [employer]- All Rights Reserved Reading location - IP/workstation name: [email or web address]
--- NOTE | 2019-08-15 19:29 | RADIOLOGY REPORT (SQ) ---
EXAM DESCRIPTION: CT ABD/PELVIS NO ORAL OR IV COMPLETED DATE/TIME: 08/15/2019 6:48 pm REASON FOR STUDY: acute renal deja COMPARISON: None. TECHNIQUE: CT scan of the abdomen and pelvis performed without intravenous or oral contrast. Images reviewed with lung, soft tissue, and bone windows. Reconstructed coronal and sagittal MPR images revi ewed. All images stored on PACS. All CT scanners at this facility use dose modulation, iterative reconstruction, and/or weight based d osing when appropriate to reduce radiation dose to as low as reasonably achievable (ALARA). [facility]: Dose Right [facility]: CareDose [facility]: Dose Right [facility]: Teradose 4D [facility]: Shoulder Tap RADIATION DOSE: mGy. LIMITATIONS: None. FINDINGS: LOWER CHEST: No significant findings. No nodules or infiltrates. NON-CONTRASTED LIVER, SPLEEN, ADRENALS: Evaluation limited by lack of IV contrast. No identified sign ificant masses. PANCREAS: No masses. No peripancreatic inflammatory changes. GALLBLADDER: No identified stones by CT criteria. No inflammatory changes to suggest cholecystitis. RIGHT KIDNEY AND URETER: No suspicious masses. There is hydronephrosis and hydroureter to the midpor tion of the ureter. No obstructing calculus is seen. LEFT KIDNEY AND URETER: No suspicious masses. Assessment limited by lack of IV contrast. No signifi cant calcifications. No hydronephrosis or hydroureter. AORTA AND RETROPERITONEUM: No aneurysm. No retroperitoneal masses or adenopathy. BOWEL AND PERITONEAL CAVITY: There is radiopaque suture associated with the right colon. No obvious bowel mass. Mild sigmoid diverticulosis. APPENDIX: Not identified. PELVIS, BLADDER, AND ABDOMINAL WALL:Urinary bladder suggests slight thickening of the wall. There is nodular protrusion of the prostate gland into the base of the bladder. BONES: Degenerative disc disease and spondylosis. No osseous lesion. OTHER: No other significant finding. IMPRESSION: Right hydronephrosis with dilatation of the proximal ureter. No obstructing calculus is seen. Mild diverticulosis. Slight thickening of the bladder wall may be secondary to bladder outle t obstruction or cystitis. Correlate clinically. There is nodular protrusion of the prostate gland into the base of the bladder. COMMENT: Quality ID # [id number]: Final reports with documentation of one or more dose reduction techniques (e.g., Automated exposure control, adjustment of the mA and/or kV according to patient size, use of iterative reconstruction technique) TECHNICAL DOCUMENTATION: JOB ID: [id number] [employer]- All Rights Reserved Reading location - IP/workstation name: [email or web address]
[2019-08-15] MEDS: NORMAL SALINE 1000 ML 1,000 ML IV PRN (20:19)
[2019-08-15 20:28] LABS: FREE T3 1.77 pg/mL (2.77-5.27); FREE T4 (FREE THYROXINE) 1.62 ng/dL (0.78-2.19)
[2019-08-15 20:42] LABS: THYROID STIMULATING HORMONE 1.46 uIU/mL (0.47-4.68)
[2019-08-15] MEDS: HEPARIN SOD (PORCINE) 5,000 UNIT/ML 1 ML VIAL SUBCUT SCH (22:00)
[2019-08-16] MEDS: HEPARIN SOD (PORCINE) 5,000 UNIT/ML 1 ML VIAL SUBCUT SCH ×3 (06:36→21:20)
--- NOTE | 2019-08-16 10:54 | PDOC PROGRESS REPORT ---
Subjective Progress Note for:: 08/16/19 Subjective:: No acute event overnight. He says he feels better today. Denies chest pain or SOB. Blood culture is growing E. coli. Urine culture is growing gram negative rods. Reason For Visit: ACUTE RENAL FAILURE,UTI,SIRS Physical Exam Vital Signs: Temp Pulse Resp BP Pulse Ox 98.8 F 69 18 128/64 H 98 08/16/19 07:18 08/16/19 07:18 08/16/19 07:18 08/16/19 07:18 08/16/19 07:18 Intake & Output 08/15/19 08/16/19 08/17/19 06:59 06:59 06:59 Intake Total 1954 Output Total 750 Balance 1204 Weight 161 lb 9.581 oz General appearance: PRESENT: no acute distress, well-developed, well-nourished Head exam: PRESENT: atraumatic, normocephalic Eye exam: PRESENT: conjunctiva pink, EOMI, PERRLA. ABSENT: scleral icterus Ear exam: PRESENT: normal external ear exam Mouth exam: PRESENT: moist, tongue midline Neck exam: ABSENT: carotid bruit, JVD, lymphadenopathy, thyromegaly Respiratory exam: PRESENT: clear to auscultation samuel. ABSENT: rales, rhonchi, wheezes Cardiovascular exam: PRESENT: RRR. ABSENT: diastolic murmur, rubs, systolic murmur Pulses: PRESENT: normal dorsalis pedis pul GI/Abdominal exam: PRESENT: normal bowel sounds, soft. ABSENT: distended, guarding, mass, organolmegaly, rebound Rectal exam: PRESENT: deferred Neurological exam: PRESENT: alert, awake, oriented to person, oriented to place, oriented to time, oriented to situation, CN II-XII grossly intact. ABSENT: motor sensory deficit Results Laboratory Results: 08/15/19 12:35 08/15/19 12:35 08/15/19 08/15/19 08/15/19 12:35 12:35 12:35 WBC 23.0 H RBC 4.03 L Hgb 11.9 L Hct 36.0 L MCV 89 MCH 29.6 MCHC 33.2 RDW 15.1 H Plt Count 418 Seg Neutrophils % Not Reportable Sodium 131.3 L Potassium 4.6 Chloride 94 L Carbon Dioxide 27 Anion Gap 10 BUN 23 H Creatinine 1.60 H Est GFR ( Amer) 51 L Glucose 100 Lactic Acid Calcium 8.9 Total Bilirubin 1.0 AST 26 Alkaline Phosphatase 93 Total Protein 6.9 Albumin 3.3 L Lipase 142.2 TSH Free T4 Free T3 pg/mL Urine Color RON Urine Appearance SLIGHTLY-CLOUDY Urine pH 5.0 Ur Specific [place] 1.013 Urine Protein 30 H Urine Glucose (UA) NEGATIVE Urine Ketones TRACE H Urine Blood NEGATIVE Urine RBC (Auto) 2 08/15/19 08/15/19 19:00 19:00 WBC RBC Hgb Hct MCV MCH MCHC RDW Plt Count Seg Neutrophils % Sodium Potassium Chloride Carbon Dioxide Anion Gap BUN Creatinine Est GFR ( Amer) Glucose Lactic Acid 1.1 Calcium Total Bilirubin AST Alkaline Phosphatase Total Protein Albumin Lipase TSH 1.46 Free T4 1.62 Free T3 pg/mL 1.77 L Urine Color Urine Appearance Urine pH Ur Specific [place] Urine Protein Urine Glucose (UA) Urine Ketones Urine Blood Urine RBC (Auto) 08/15/19 19:00 Blood Blood Culture (PCR) - Final Escherichia Coli Impressions: Abdomen/Pelvis CT 08/15/19 00:00 IMPRESSION: Right hydronephrosis with dilatation of the proximal ureter. No obstructing calculus is seen. Mild diverticulosis. Slight thickening of the bladder wall may be secondary to bladder outlet obstruction or cystitis. Correlate clinically. There is nodular protrusion of the prostate gland into the base of the bladder. Chest CT 08/15/19 00:00 IMPRESSION: Chronic lung changes. Thoracic spondylosis. 4 mm right pulmonary nodule. Cervical Spine X-Ray 08/15/19 12:28 IMPRESSION: 1. No definite acute bony abnormality of the cervical spine. 2. Moderate to severe multilevel degenerative change greatest at C5-6. Multilevel facet arthropathy. Shoulder X-Ray 08/15/19 12:28 IMPRESSION: No acute bony abnormality. 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 Thoracic Spine X-Ray 08/15/19 12:28 IMPRESSION: No definite acute bony abnormality. Degenerative changes with multilevel disc height loss and prominent anterolateral osteophyte at the midthoracic spine. Decreased osseous mineralization. Chest X-Ray 08/15/19 17:34 IMPRESSION: No acute cardiopulmonary findings. Unusual appearance of the right hilum may be secondary to large thoracic spine osteophytes. Consider CT if clinically indicated. Assessment and Plan - Diagnosis (1) E coli bacteremia Is this a current diagnosis for this admission?: Yes Plan: Blood culture is growing E. coli. Urine culture is growing gram negative rods. Continue Rocephin. (2) Acute pyelonephritis Is this a current diagnosis for this admission?: Yes Plan: As per number 1. (3) Acute renal failure Is this a current diagnosis for this admission?: Yes Plan: Possibly prerenal as patient does report he has been eating less in the past several weeks. He does complain of chronic left flank pain. CT of the abdomen and pelvis revealed right sided hydronephrosis. Repeat BMP today. Continue IV fluids. (4) COPD (chronic obstructive pulmonary disease) Qualifiers: COPD type: unspecified COPD Qualified Code(s): J44.9 - Chronic obstructive pulmonary disease, unspecified Is this a current diagnosis for this admission?: Yes Plan: Not in exacerbation. Breathing treatments as needed. (5) UTI (urinary tract infection) Qualifiers: Urinary tract infection type: site unspecified Hematuria presence: without hematuria Qualified Code(s): N39.0 - Urinary tract infection, site not specified Is this a current diagnosis for this admission?: Yes Plan: Continue IV Rocephin. (6) Chronic right shoulder pain Is this a current diagnosis for this admission?: Yes Plan: Lidocaine patch added. - Time Time Spent with patient: 25-34 minutes
[2019-08-16] MEDS: NICOTINE 21 MG/24 HR PATCH.TD24 TD SCH (11:14)
[2019-08-16 11:46] LABS: ABSOLUTE BASOPHILS # (AUTO) 0.1 10^3/uL (0.0-0.2); ABSOLUTE EOSINOPHILS # (AUTO) 0.1 10^3/uL (0.0-0.6); ABSOLUTE LYMPHOCYTES (AUTO) 1.3 10^3/uL (0.5-4.7); ABSOLUTE MONOCYTES (AUTO) 1.2 10^3/uL (0.1-1.4); BASOPHILS % (AUTO) 0.4 % (0-2); EOSINOPHILS % (AUTO) 0.3 % (0-6); HEMATOCRIT 30.8 % (37.9-51.0); HEMOGLOBIN 10.3 g/dL (13.5-17.0); LYMPHOCYTES % (AUTO) 8.4 % (13-45); MEAN CORPUSCULAR HEMOGLOBIN 29.8 pg (27.0-33.4); MEAN CORPUSCULAR HGB CONC 33.4 g/dL (32.0-36.0); MEAN CORPUSCULAR VOLUME 89 fl (80-97); MONOCYTES % (AUTO) 7.5 % (3-13); PLATELET COUNT 325 10^3/uL (150-450); RED BLOOD COUNT 3.45 10^6/uL (4.35-5.55); RED CELL DISTRIBUTION WIDTH 15.3 % (11.5-14.0); SEGMENTED NEUTROPHILS % (AUTO) 83.4 % (42-78); TOTAL CELLS COUNTED % (AUTO) 100 %; WHITE BLOOD COUNT 15.6 10^3/uL (4.0-10.5)
[2019-08-16 12:14] LABS: ANION GAP 8 (5-19); BLOOD UREA NITROGEN 20 mg/dL (7-20); CALCIUM 8.1 mg/dL (8.4-10.2); CARBON DIOXIDE 26 mmol/L (22-30); CHLORIDE 101 mmol/L (98-107); GLUCOSE 118 mg/dL (75-110); POTASSIUM 4.7 mmol/L (3.6-5.0)
[2019-08-16] MEDS: NORMAL SALINE 1000 ML 1,000 ML IV PRN ×2 (12:34→22:53)
[2019-08-16] MEDS: LIDOCAINE 5% (700 MG) TRANSDERMAL ADH..PATCH TP SCH (13:22)
--- NOTE | 2019-08-16 17:06 | PSYCHOLOGICAL NOTE ---
Psych Note - Psych Note Date seen by psych provider: 08/16/19 Time seen by psych provider: 16:15 Psych Note: Reason for Consult: Depression Impression/plan: Patient is cleared from acute psychiatric service. Patient engaged appropriately with clinician and demonstrated euthymic mood as evidenced by smiling and laughing with clinician. Patient discloses being lonely and missing his that 2 years ago. Patient reports he has difficulty with sleeping at night and is willing for [facility] to assist in medication to help with sleep. Dr. Jacobs was consulted on the care and management of this patient; attending physician is in agreement with recommendations and disposition.
[2019-08-16] MEDS ORDERED: CEFTRIAXONE 1 GM/D5W RTU 1 GM/50 ML RTUPB IV SCH (18:00)
[2019-08-16] MEDS: BUSPIRONE HCL 10 MG TABLET PO SCH (21:19)
[2019-08-17] MEDS: HEPARIN SOD (PORCINE) 5,000 UNIT/ML 1 ML VIAL SUBCUT SCH ×3 (05:07→21:22)
[2019-08-17] MEDS: NORMAL SALINE 1000 ML 1,000 ML IV PRN ×2 (07:01→16:25)
[2019-08-17] MEDS: NICOTINE 21 MG/24 HR PATCH.TD24 TD SCH (09:11)
[2019-08-17] MEDS: BUSPIRONE HCL 10 MG TABLET PO SCH ×2 (09:12→21:21)
[2019-08-17] MEDS: LIDOCAINE 5% (700 MG) TRANSDERMAL ADH..PATCH TP SCH (09:13)
[2019-08-17 11:22] LABS: ABSOLUTE EOSINOPHILS # (AUTO) 0.1 10^3/uL (0.0-0.6); ABSOLUTE LYMPHOCYTES (AUTO) 1.7 10^3/uL (0.5-4.7); ABSOLUTE MONOCYTES (AUTO) 1.3 10^3/uL (0.1-1.4); ABSOLUTE NEUT (AUTO) 10.6 10^3/uL (1.7-8.2); BASOPHILS % (AUTO) 0.3 % (0-2); EOSINOPHILS % (AUTO) 0.5 % (0-6); HEMATOCRIT 31.4 % (37.9-51.0); HEMOGLOBIN 10.5 g/dL (13.5-17.0); LYMPHOCYTES % (AUTO) 12.6 % (13-45); MEAN CORPUSCULAR HEMOGLOBIN 29.6 pg (27.0-33.4); MEAN CORPUSCULAR HGB CONC 33.3 g/dL (32.0-36.0); MEAN CORPUSCULAR VOLUME 89 fl (80-97); MONOCYTES % (AUTO) 9.2 % (3-13); PLATELET COUNT 318 10^3/uL (150-450); RED BLOOD COUNT 3.54 10^6/uL (4.35-5.55); RED CELL DISTRIBUTION WIDTH 15.4 % (11.5-14.0); SEGMENTED NEUTROPHILS % (AUTO) 77.4 % (42-78); TOTAL CELLS COUNTED % (AUTO) 100 %; WHITE BLOOD COUNT 13.7 10^3/uL (4.0-10.5)
[2019-08-17 11:44] LABS: ANION GAP 7 (5-19); BLOOD UREA NITROGEN 17 mg/dL (7-20); CALCIUM 8.3 mg/dL (8.4-10.2); CARBON DIOXIDE 26 mmol/L (22-30); CHLORIDE 102 mmol/L (98-107); GLUCOSE 101 mg/dL (75-110); POTASSIUM 4.5 mmol/L (3.6-5.0)
--- NOTE | 2019-08-17 13:38 | Progress Note ---
Provider Note Provider Note: [facility] ID Telephone Advice Consultation Chart reviewed. This is a 78-year-old man with hisotry of COPD on home oxygen who was admitted with urinary symptoms and flank pain. He had significant leukocytosis on admission, slightly elevated. Creatinine still elevated as well. Blood culture positive for E coli and urine culture as well. CT scan of abdomen and pelvis describing hydronephrosis without kidney stones seen. There is also nodularity of the prostate. Patient is slowly improving, symptoms improved as well. ID consulted for recommendations. PMH: COPD Allergies: No Known Allergies Allergy (Verified 08/15/19 12:24) Medications: Donepezil HCl [Aricept 5 mg Tablet] 5 mg PO DAILY 08/15/19 Hydroxyzine HCl [Atarax 10 mg Tablet] 25 mg PO QPM 08/15/19 Vital Signs: Temp Pulse Resp BP Pulse Ox 97.8 F 66 18 122/59 L 99 08/17/19 10:56 08/17/19 10:56 08/17/19 10:56 08/17/19 10:56 08/17/19 10:56 Intake & Output 08/16/19 08/17/19 08/18/19 06:59 06:59 06:59 Intake Total 2954 2930 Output Total 750 1310 Balance 2204 1620 Weight 73.3 kg 74.5 kg Weight/Height Weight 74.5 kg Height 5 ft 11 in Laboratories: 08/17/19 10:59 08/17/19 10:59 MCV 89 fl (80-97) 08/17/19 10:59 MCH 29.6 pg (27.0-33.4) 08/17/19 10:59 MCHC 33.3 g/dL (32.0-36.0) 08/17/19 10:59 RDW 15.4 % (11.5-14.0) H 08/17/19 10:59 Seg Neutrophils % 77.4 % (42-78) 08/17/19 10:59 Chloride 102 mmol/L (98-107) 08/17/19 10:59 Carbon Dioxide 26 mmol/L (22-30) 08/17/19 10:59 Anion Gap 7 (5-19) 08/17/19 10:59 Est GFR ( Amer) > 60 (>60) 08/17/19 10:59 Glucose 101 mg/dL (75-110) 08/17/19 10:59 Lactic Acid 1.1 mmol/L (0.7-2.1) 08/15/19 19:00 Calcium 8.3 mg/dL (8.4-10.2) L 08/17/19 10:59 Total Bilirubin 1.0 mg/dL (0.2-1.3) 08/15/19 12:35 AST 26 U/L (17-59) 08/15/19 12:35 Alkaline Phosphatase 93 U/L (38-126) 08/15/19 12:35 Total Protein 6.9 g/dL (6.3-8.2) 08/15/19 12:35 Albumin 3.3 g/dL (3.5-5.0) L 08/15/19 12:35 Lipase 142.2 U/L (23-300) 08/15/19 12:35 TSH 1.46 uIU/mL (0.47-4.68) 08/15/19 19:00 Free T4 1.62 ng/dL (0.78-2.19) 08/15/19 19:00 Free T3 pg/mL 1.77 pg/mL (2.77-5.27) L 08/15/19 19:00 Urine Color RON 08/15/19 12:35 Urine Appearance SLIGHTLY-CLOUDY 08/15/19 12:35 Urine pH 5.0 (5.0-9.0) 08/15/19 12:35 Ur Specific Rowdy 1.013 08/15/19 12:35 Urine Protein 30 mg/dL (NEGATIVE) H 08/15/19 12:35 Urine Glucose (UA) NEGATIVE mg/dL (NEGATIVE) 08/15/19 12:35 Urine Ketones TRACE mg/dL (NEGATIVE) H 08/15/19 12:35 Urine Blood NEGATIVE (NEGATIVE) 08/15/19 12:35 Urine RBC (Auto) 2 /HPF 08/15/19 12:35 08/15/19 19:00 Blood Blood Culture (PCR) - Final Escherichia Coli 08/15/19 12:35 Clean Catch Midstream Urine Culture - Final Escherichia Coli Radiology: Abdomen/Pelvis CT 08/15/19 00:00 IMPRESSION: Right hydronephrosis with dilatation of the proximal ureter. No obstructing calculus is seen. Mild diverticulosis. Slight thickening of the bladder wall may be secondary to bladder outlet obstruction or cystitis. Correlate clinically. There is nodular protrusion of the prostate gland into the base of the bladder. Chest CT 08/15/19 00:00 IMPRESSION: Chronic lung changes. Thoracic spondylosis. 4 mm right pulmonary nodule. Cervical Spine X-Ray 08/15/19 12:28 IMPRESSION: 1. No definite acute bony abnormality of the cervical spine. 2. Moderate to severe multilevel degenerative change greatest at C5-6. Multilevel facet arthropathy. Shoulder X-Ray 08/15/19 12:28 IMPRESSION: No acute bony abnormality. 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 Thoracic Spine X-Ray 08/15/19 12:28 IMPRESSION: No definite acute bony abnormality. Degenerative changes with multilevel disc height loss and prominent anterol ateral osteophyte at the midthoracic spine. Decreased osseous mineralization. Chest X-Ray 08/15/19 17:34 IMPRESSION: No acute cardiopulmonary findings. Unusual appearance of the right hilum may be secondary to large thoracic spine osteophytes. Consider CT if clinically indicated. Assessment and recommendations: Patient evaluated due to E coli pyelonephritis and bacteremia. Patient's source of urinary tract may be prostatomegaly vs nodularity of the prostate obstructing and causing hydronephrosis. Patient will need urology evaluation to determine any intervention for source control (? stent). Ceftriaxone 2g Iv daily is adequate. A total of 14 days is recommended unless there is evidence of acute prostatitis which may require 4 weeks of therapy. New blood cultures remain negative. Please call if questions. Rhiannon Michelle MD [facility] ID [phone]
--- NOTE | 2019-08-17 16:31 | RADIOLOGY REPORT (SQ) ---
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 FLUOROSCOPY TIME: 0.34 minutes. 2 images submitted to PACS. TECHNIQUE: Fluoroscopic and ultrasound guided PICC placement. LIMITATIONS: None. PROCEDURE: The procedure, risks, benefits, and alternatives were discussed with the patient in the p reprocedural area, and all questions were answered. Informed consent was obtained verbally and in wri ting. The patient was then brought to the procedural suite, positioned supine on the fluoroscopy table, and a time-out was performed. At first the left upper extremity was evaluated with ultrasound and the brachial vein was found to be patent and compressible - an ultrasound image of the vessel was obtained and submitted to PACS to do cument the use of ultrasound guidance. The left upper extremity was then prepped and draped with 2% chlorhexidine utilizing standard sterile technique. After the skin over the brachial vein was anesthe tized with 1% lidocaine, ultrasound guidance was used to access the vessel with a 21-gauge needle. A 0.018 inch guidewire was then inserted through the needle and advanced under fluoroscopic guidance in to the SVC. After that, the needle was exchanged over the guidewire for a peel-away sheath. A 5 Frenc h double -lumen PICC was then cut to the appropriate length of 48 cm, inserted through the sheath and advanced under fluoroscopic guidance into the SVC. After that, the peel-away sheath was removed and a fluoroscopic image of the chest was obtained to confirm proper position of the catheter tip within SVC. The lumens of the PICC were then aspirated, flushed with sterile saline and heparinized. At the end of the procedure the PICC was secured in place and a sterile dressing applied over it. The patient tolerated the procedure well without immediate complication. At the end of the procedure the patient's condition was unchanged from the preprocedural baseline. No IV conscious sedation was administered. Physiologic monitoring was provided before, during, and after the procedure. Documentation of [id number] time performing proceduralist spent monitoring the patient: 15 minutes. IMPRESSION: Successful placement of a 5 Mongolian x 48 cm double-lumen PICC via the left brachial vein utilizing fluoroscopic and sonographic guidance. COMMENT: Patient medication list reviewed: Yes- Quality ID# [id number]:Eligible professional attests to doc umenting in the medical record they obtained, updated, or reviewed the patient's current medications. . Quality ID 145: Final reports for procedures using fluoroscopy that document radiation exposure mckenna catalina, or exposure time and number of fluorographic images (if radiation exposure indices are not avail able) Quality ID #76: The patient was prepped and draped using maximum sterile barrier technique including cap, mask, sterile gown, sterile gloves, a large sterile sheet, hand hygiene, and 2% Chlorhexidine fo r cutaneous antisepsis. When ultrasound is used, sterile ultrasound techniques are followed requiring sterile gel and sterile probes. TECHNICAL DOCUMENTATION: JOB ID: [id number] [employer]- All Rights Reserved rev-12/02 Reading location - IP/workstation name: [email or web address]
--- NOTE | 2019-08-17 16:31 | RADIOLOGY REPORT (SQ) ---
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 FLUOROSCOPY TIME: 0.34 minutes. 2 images submitted to PACS. TECHNIQUE: Fluoroscopic and ultrasound guided PICC placement. LIMITATIONS: None. PROCEDURE: The procedure, risks, benefits, and alternatives were discussed with the patient in the p reprocedural area, and all questions were answered. Informed consent was obtained verbally and in wri ting. The patient was then brought to the procedural suite, positioned supine on the fluoroscopy table, and a time-out was performed. At first the left upper extremity was evaluated with ultrasound and the brachial vein was found to be patent and compressible - an ultrasound image of the vessel was obtained and submitted to PACS to do cument the use of ultrasound guidance. The left upper extremity was then prepped and draped with 2% chlorhexidine utilizing standard sterile technique. After the skin over the brachial vein was anesthe tized with 1% lidocaine, ultrasound guidance was used to access the vessel with a 21-gauge needle. A 0.018 inch guidewire was then inserted through the needle and advanced under fluoroscopic guidance in to the SVC. After that, the needle was exchanged over the guidewire for a peel-away sheath. A 5 Frenc h double -lumen PICC was then cut to the appropriate length of 48 cm, inserted through the sheath and advanced under fluoroscopic guidance into the SVC. After that, the peel-away sheath was removed and a fluoroscopic image of the chest was obtained to confirm proper position of the catheter tip within SVC. The lumens of the PICC were then aspirated, flushed with sterile saline and heparinized. At the end of the procedure the PICC was secured in place and a sterile dressing applied over it. The patient tolerated the procedure well without immediate complication. At the end of the procedure the patient's condition was unchanged from the preprocedural baseline. No IV conscious sedation was administered. Physiologic monitoring was provided before, during, and after the procedure. Documentation of [id number] time performing proceduralist spent monitoring the patient: 15 minutes. IMPRESSION: Successful placement of a 5 Mauritian x 48 cm double-lumen PICC via the left brachial vein utilizing fluoroscopic and sonographic guidance. COMMENT: Patient medication list reviewed: Yes- Quality ID# [id number]:Eligible professional attests to doc umenting in the medical record they obtained, updated, or reviewed the patient's current medications. . Quality ID 145: Final reports for procedures using fluoroscopy that document radiation exposure mckenna catalina, or exposure time and number of fluorographic images (if radiation exposure indices are not avail able) Quality ID #76: The patient was prepped and draped using maximum sterile barrier technique including cap, mask, sterile gown, sterile gloves, a large sterile sheet, hand hygiene, and 2% Chlorhexidine fo r cutaneous antisepsis. When ultrasound is used, sterile ultrasound techniques are followed requiring sterile gel and sterile probes. TECHNICAL DOCUMENTATION: JOB ID: [id number] [employer]- All Rights Reserved rev-12/02 Reading location - IP/workstation name: [email or web address]
--- NOTE | 2019-08-17 16:31 | RADIOLOGY REPORT (SQ) ---
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 FLUOROSCOPY TIME: 0.34 minutes. 2 images submitted to PACS. TECHNIQUE: Fluoroscopic and ultrasound guided PICC placement. LIMITATIONS: None. PROCEDURE: The procedure, risks, benefits, and alternatives were discussed with the patient in the p reprocedural area, and all questions were answered. Informed consent was obtained verbally and in wri ting. The patient was then brought to the procedural suite, positioned supine on the fluoroscopy table, and a time-out was performed. At first the left upper extremity was evaluated with ultrasound and the brachial vein was found to be patent and compressible - an ultrasound image of the vessel was obtained and submitted to PACS to do cument the use of ultrasound guidance. The left upper extremity was then prepped and draped with 2% chlorhexidine utilizing standard sterile technique. After the skin over the brachial vein was anesthe tized with 1% lidocaine, ultrasound guidance was used to access the vessel with a 21-gauge needle. A 0.018 inch guidewire was then inserted through the needle and advanced under fluoroscopic guidance in to the SVC. After that, the needle was exchanged over the guidewire for a peel-away sheath. A 5 Frenc h double -lumen PICC was then cut to the appropriate length of 48 cm, inserted through the sheath and advanced under fluoroscopic guidance into the SVC. After that, the peel-away sheath was removed and a fluoroscopic image of the chest was obtained to confirm proper position of the catheter tip within SVC. The lumens of the PICC were then aspirated, flushed with sterile saline and heparinized. At the end of the procedure the PICC was secured in place and a sterile dressing applied over it. The patient tolerated the procedure well without immediate complication. At the end of the procedure the patient's condition was unchanged from the preprocedural baseline. No IV conscious sedation was administered. Physiologic monitoring was provided before, during, and after the procedure. Documentation of [id number] time performing proceduralist spent monitoring the patient: 15 minutes. IMPRESSION: Successful placement of a 5 East Timorese x 48 cm double-lumen PICC via the left brachial vein utilizing fluoroscopic and sonographic guidance. COMMENT: Patient medication list reviewed: Yes- Quality ID# [id number]:Eligible professional attests to doc umenting in the medical record they obtained, updated, or reviewed the patient's current medications. . Quality ID 145: Final reports for procedures using fluoroscopy that document radiation exposure mckenna catalina, or exposure time and number of fluorographic images (if radiation exposure indices are not avail able) Quality ID #76: The patient was prepped and draped using maximum sterile barrier technique including cap, mask, sterile gown, sterile gloves, a large sterile sheet, hand hygiene, and 2% Chlorhexidine fo r cutaneous antisepsis. When ultrasound is used, sterile ultrasound techniques are followed requiring sterile gel and sterile probes. TECHNICAL DOCUMENTATION: JOB ID: [id number] [employer]- All Rights Reserved rev-12/02 Reading location - IP/workstation name: [email or web address]
--- NOTE | 2019-08-17 16:36 | PDOC PROGRESS REPORT ---
Subjective Progress Note for:: 08/17/19 Subjective:: 08/16: No acute event overnight. He says he feels better today. Denies chest pain or SOB. Blood culture is growing E. coli. Urine culture also grew E. coli. 08/17: No acute issues. Patient continues to report feeling much better. Denies chest pain or shortness of breath. Appreciate ID recommendations. Will order for PICC line placement for home IV antibiotics for E. coli bacteremia. Patient will also be set up with outpatient urology. Reason For Visit: ACUTE RENAL FAILURE,UTI,SIRS Physical Exam Vital Signs: Temp Pulse Resp BP Pulse Ox 97.8 F 68 16 122/59 L 96 08/17/19 10:56 08/17/19 14:16 08/17/19 14:16 08/17/19 10:56 08/17/19 14:16 Intake & Output 08/16/19 08/17/19 08/18/19 06:59 06:59 06:59 Intake Total 2954 2930 929 Output Total 750 1310 Balance 2204 1620 929 Weight 161 lb 9.581 oz 164 lb 3.91 oz General appearance: PRESENT: no acute distress, well-developed, well-nourished Head exam: PRESENT: atraumatic, normocephalic Eye exam: PRESENT: conjunctiva pink, EOMI, PERRLA. ABSENT: scleral icterus Ear exam: PRESENT: normal external ear exam Mouth exam: PRESENT: moist, tongue midline Neck exam: ABSENT: carotid bruit, JVD, lymphadenopathy, thyromegaly Respiratory exam: PRESENT: clear to auscultation samuel. ABSENT: rales, rhonchi, wheezes Cardiovascular exam: PRESENT: RRR. ABSENT: diastolic murmur, rubs, systolic murmur Pulses: PRESENT: normal dorsalis pedis pul GI/Abdominal exam: PRESENT: normal bowel sounds, soft. ABSENT: distended, guarding, mass, organolmegaly, rebound, tenderness Rectal exam: PRESENT: deferred Extremities exam: PRESENT: full ROM. ABSENT: calf tenderness, clubbing, pedal edema Neurological exam: PRESENT: alert, awake, oriented to person, oriented to place, oriented to time, oriented to situation, CN II-XII grossly intact. ABSENT: motor sensory deficit Results Laboratory Results: 08/17/19 10:59 08/17/19 10:59 08/17/19 08/17/19 10:59 10:59 WBC 13.7 H RBC 3.54 L Hgb 10.5 L Hct 31.4 L MCV 89 MCH 29.6 MCHC 33.3 RDW 15.4 H Plt Count 318 Seg Neutrophils % 77.4 Sodium 134.5 L Potassium 4.5 Chloride 102 Carbon Dioxide 26 Anion Gap 7 BUN 17 Creatinine 1.31 H Est GFR ( Amer) > 60 Glucose 101 Calcium 8.3 L 08/15/19 19:00 Blood Blood Culture (PCR) - Final Escherichia Coli 08/15/19 12:35 Clean Catch Midstream Urine Culture - Final Escherichia Coli Impressions: Abdomen/Pelvis CT 08/15/19 00:00 IMPRESSION: Right hydronephrosis with dilatation of the proximal ureter. No obstructing calculus is seen. Mild diverticulosis. Slight thickening of the bladder wall may be secondary to bladder outlet obstruction or cystitis. Correlate clinically. There is nodular protrusion of the prostate gland into the base of the bladder. Chest CT 08/15/19 00:00 IMPRESSION: Chronic lung changes. Thoracic spondylosis. 4 mm right pulmonary nodule. Cervical Spine X-Ray 08/15/19 12:28 IMPRESSION: 1. No definite acute bony abnormality of the cervical spine. 2. Moderate to severe multilevel degenerative change greatest at C5-6. Multilevel facet arthropathy. Shoulder X-Ray 08/15/19 12:28 IMPRESSION: No acute bony abnormality. 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 Thoracic Spine X-Ray 08/15/19 12:28 IMPRESSION: No definite acute bony abnormality. Degenerative changes with multilevel disc height loss and prominent anterolat eral osteophyte at the midthoracic spine. Decreased osseous mineralization. Chest X-Ray 08/15/19 17:34 IMPRESSION: No acute cardiopulmonary findings. Unusual appearance of the right hilum may be secondary to large thoracic spine osteophytes. Consider CT if clinically indicated. Assessment and Plan - Diagnosis (1) E coli bacteremia Is this a current diagnosis for this admission?: Yes Plan: Blood culture is growing E. coli. Urine culture also grew E. coli. Continue Rocephin. Appreciate ID recommendations. Will order for PICC line placement for home IV antibiotics for E. coli bacteremia. Patient will also be set up with outpatient urology. (2) Acute pyelonephritis Is this a current diagnosis for this admission?: Yes Plan: As per number 1. (3) Acute renal failure Is this a current diagnosis for this admission?: Yes Plan: Possibly prerenal as patient does report he has been eating less in the past several weeks. He does complain of chronic left flank pain. CT of the abdomen and pelvis revealed right sided hydronephrosis. Continue IV fluids. (4) COPD (chronic obstructive pulmonary disease) Qualifiers: COPD type: unspecified COPD Qualified Code(s): J44.9 - Chronic obstructive pulmonary disease, unspecified Is this a current diagnosis for this admission?: Yes Plan: Not in exacerbation. Breathing treatments as needed. (5) UTI (urinary tract infection) Qualifiers: Urinary tract infection type: site unspecified Hematuria presence: without hematuria Qualified Code(s): N39.0 - Urinary tract infection, site not specified Is this a current diagnosis for this admission?: Yes Plan: Continue IV Rocephin. (6) Chronic right shoulder pain Is this a current diagnosis for this admission?: Yes Plan: Lidocaine patch added. - Time Time Spent with patient: 25-34 minutes
[2019-08-17] MEDS: CEFTRIAXONE 2 GM/D5W RTU 2 GM/50 ML RTUPB IV SCH (17:45)
[2019-08-18] MEDS ORDERED: NORMAL SALINE 10 ML SDV (AFTER EACH USE) IV PRN (01:00)
[2019-08-18] MEDS: NORMAL SALINE 1000 ML 1,000 ML IV PRN (02:00)
[2019-08-18] MEDS: HEPARIN SOD (PORCINE) 5,000 UNIT/ML 1 ML VIAL SUBCUT SCH ×2 (05:14→14:17)
[2019-08-18 06:24] LABS: ABSOLUTE BASOPHILS # (AUTO) 0.1 10^3/uL (0.0-0.2); ABSOLUTE EOSINOPHILS # (AUTO) 0.2 10^3/uL (0.0-0.6); ABSOLUTE LYMPHOCYTES (AUTO) 1.7 10^3/uL (0.5-4.7); ABSOLUTE MONOCYTES (AUTO) 1.3 10^3/uL (0.1-1.4); ABSOLUTE NEUT (AUTO) 9.4 10^3/uL (1.7-8.2); BASOPHILS % (AUTO) 0.5 % (0-2); EOSINOPHILS % (AUTO) 1.3 % (0-6); HEMATOCRIT 29.8 % (37.9-51.0); LYMPHOCYTES % (AUTO) 13.4 % (13-45); MEAN CORPUSCULAR HEMOGLOBIN 29.5 pg (27.0-33.4); MEAN CORPUSCULAR HGB CONC 33.5 g/dL (32.0-36.0); MEAN CORPUSCULAR VOLUME 88 fl (80-97); MONOCYTES % (AUTO) 10.1 % (3-13); PLATELET COUNT 332 10^3/uL (150-450); RED BLOOD COUNT 3.38 10^6/uL (4.35-5.55); RED CELL DISTRIBUTION WIDTH 15.4 % (11.5-14.0); SEGMENTED NEUTROPHILS % (AUTO) 74.7 % (42-78); TOTAL CELLS COUNTED % (AUTO) 100 %; WHITE BLOOD COUNT 12.6 10^3/uL (4.0-10.5)
[2019-08-18 06:41] LABS: ANION GAP 9 (5-19); BLOOD UREA NITROGEN 15 mg/dL (7-20); CALCIUM 8.2 mg/dL (8.4-10.2); CARBON DIOXIDE 25 mmol/L (22-30); CHLORIDE 101 mmol/L (98-107); GLUCOSE 89 mg/dL (75-110); POTASSIUM 4.2 mmol/L (3.6-5.0)
[2019-08-18] MEDS ORDERED: NORMAL SALINE 10 ML SDV (SCHEDULED) IV SCH (10:00)
[2019-08-18] MEDS: BUSPIRONE HCL 10 MG TABLET PO SCH (10:12)
[2019-08-18] MEDS: NICOTINE 21 MG/24 HR PATCH.TD24 TD SCH (10:13)
[2019-08-18] MEDS: LIDOCAINE 5% (700 MG) TRANSDERMAL ADH..PATCH TP SCH (10:15)
[2019-08-18] MEDS: CEFTRIAXONE 2 GM/D5W RTU 2 GM/50 ML RTUPB IV SCH (14:15)
[2019-08-18 14:46] VITALS: BP 125/68
--- NOTE | 2019-08-18 18:27 | PDOC DISCHARGE SUMMARY ---
Impression - Admit/DC Date/PCP Admission Date/Primary Care Provider: 08/15/19 18:30 Discharge Date: 08/18/19 - Discharge Diagnosis (1) E coli bacteremia Is this a current diagnosis for this admission?: Yes (2) Acute pyelonephritis Is this a current diagnosis for this admission?: Yes (3) Acute renal failure Is this a current diagnosis for this admission?: Yes (4) COPD (chronic obstructive pulmonary disease) Is this a current diagnosis for this admission?: Yes (5) UTI (urinary tract infection) Is this a current diagnosis for this admission?: Yes (6) Chronic right shoulder pain Is this a current diagnosis for this admission?: Yes - Additional Information Resuscitation Status: Do Not Resuscitate Discharge Diet: As Tolerated Discharge Activity: Activity As Tolerated Referrals: [facility] [Provider Group] - 09/17/19 1:30 pm (NEXT AVAILABLE APPT. 09/17/2019@[address] DAVENPORT. PLEASE BRING ID, INSURANCE CARD, MEDICATION LIST, HOSPITAL DISCHARGE PAPERS, AND ANY IMAGING COPIES FROM HOSPITAL.) [facility] [Provider Group] (OFFICE CLOSED FOR THE DAY LEFT MESSAGE FOR OFFICE TO CALL PATIENT.) Prescriptions: Buspirone HCl [Buspar 10 mg Tablet] 5 mg PO Q12 #30 tablet Lidocaine [Lidoderm 5% (700 mg) Transdermal Patch] 1 patch TP DAILY PRN #20 adh..patch PRN Reason: Nicotine [Nicoderm 21 mg/24 Hr Transderm Patch] 1 each TD DAILY #30 patch.td24 Ceftriaxone 2 gm/D5w RTU [Rocephin RTU 2 gm/D5w 50 ml Premix Bag] 2 gm IV DAILY 12 Days #12 rtupb Home Medications: Donepezil HCl [Aricept 5 mg Tablet] 5 mg PO DAILY 08/15/19 Hydroxyzine HCl [Atarax 10 mg Tablet] 25 mg PO QPM 08/15/19 Buspirone HCl [Buspar 10 mg Tablet] 5 mg PO Q12 #30 tablet 08/18/19 Ceftriaxone 2 gm/D5w RTU [Rocephin RTU 2 gm/D5w 50 ml Premix Bag] 2 gm IV DAILY 12 Days #12 rtupb 08/18/19 Lidocaine [Lidoderm 5% (700 mg) Transdermal Patch] 1 patch TP DAILY PRN #20 adh..patch 08/18/19 Nicotine [Nicoderm 21 mg/24 Hr Transderm Patch] 1 each TD DAILY #30 patch.td24 08/18/19 History of Present Illiness History of Present Illness: MARY MEYER is a 78 year old male with a past medical history of COPD not on home O2, history of hyperthyroidism with prior thyroidectomy and chronic heavy cigarette smoking who is presenting with multiple complaints. Upon encounter, patient appears comfortable in room air. When asked what his main symptoms are reasons of going to the ER, he says that he has been having chronic worsening of his right shoulder pain and left flank pain. He says that he has been having right shoulder pain for more than 3 months now and it has progressed to the point that he can barely abduct his right shoulder. He says that he also has been dealing with this left flank pain for the past 5 months and this is been slowly worsening as well to the point that he cannot lay on his left side. He denies pain along the spine. There is no spinal tenderness on palpation. He reports he also has been having urinary frequency for the past 4 weeks. He denies hematuria, dysuria or urgency. He denies having fever but reports he has been having chills for the past 3 months. He says he has chills occasionally at night but also has chills when he wakes up in the morning. He reports he has lost 60 pounds over the past 3 to 4 months. He admits to having poor oral intake for the past few weeks. When asked why this is so, he says he just does not have the appetite. He denies he has depressed mood. Clarified the statement from the staff when he remarked that he does not have drive to continue living, and he commented he meant he does not care if he dies but verbalizes he does not have any suicidal ideation nor thoughts of harming himself. He denies any hallucination or delusions or homicidal ideations. When asked why this is so, he says that he has lived his life and he does not particularly care if he rejoins his who has more than 2 years ago. He does not think he is depressed. He verbalizes he actually has a directive and is a DNR/DNI. He verbalizes he does not want any form of resuscitation including chest compressions, defibrillation or mechanical ventilation if the need arises. He also verbalizes he does not want to ever be sent or discharged to a longterm or a long-term facility in the future. He says his stepdaughter, Jillian De Los Santos in [place], [place] is his surrogate decision maker. He also reports of minimally productive cough for the past 2 to 3 months. He says he used to smoke more than 2 packs of cigarettes a day but has now gone down to 1 and half pack a day. He only occasionally drinks beer or wine. He denies recreational drug use. In the ER, work-up was remarkable for leukocytosis and acute renal failure. UA did show pyuria and bacteriuria. X- rays showed degenerative changes and chronic rotator cuff loss. Hospital Course Hospital Course: Patient was admitted for sepsis secondary to UTI. He was started on IV antibiotics. He was also started on IV fluids. His septic work-up did come back remarkable for E. coli bacteremia. CT of the abdomen and pelvis revealed right-sided hydronephrosis with no definite mass or stone. ID was also consulted. Patient was continued on Rocephin. He had a PICC line placement. He will complete a total of 2 weeks of Rocephin for E. coli bacteremia from pyelonephritis. His acute renal failure also resolved with IV fluids. Patient was also made an appointment with urology for possible cystoscopy. Patient returned to his baseline. His CT of the chest also showed a right pulmonary nodule. He does have a strong cigarette smoking history and continues to smoke. He will be given an appointment with outpatient pulmonology for further recommendations and surveillance. He complains of worsening chronic right shoulder pain and was found to have rotator cuff loss. He was given lidocaine patch which relieved his pain. He was also given an appointment with the [facility] for possible steroid injections. Physical Exam Vital Signs: Temp Pulse Resp BP Pulse Ox 97.4 F 96 16 125/68 100 08/18/19 13:55 08/18/19 13:55 08/18/19 13:55 08/18/19 13:55 08/18/19 13:55 Intake & Output 08/17/19 08/18/19 08/19/19 06:59 06:59 06:59 Intake Total 2930 3392 240 Output Total 1310 2950 825 Balance 1620 442 -585 Weight 164 lb 3.91 oz 164 lb 7.437 oz General appearance: PRESENT: no acute distress, well-developed, well-nourished Head exam: PRESENT: atraumatic, normocephalic Eye exam: PRESENT: conjunctiva pink, EOMI, PERRLA. ABSENT: scleral icterus Ear exam: PRESENT: normal external ear exam Mouth exam: PRESENT: moist, tongue midline Neck exam: ABSENT: carotid bruit, JVD, lymphadenopathy, thyromegaly Respiratory exam: PRESENT: clear to auscultation samuel. ABSENT: rales, rhonchi, wheezes Cardiovascular exam: PRESENT: RRR. ABSENT: diastolic murmur, rubs, systolic murmur Pulses: PRESENT: normal dorsalis pedis pul GI/Abdominal exam: PRESENT: normal bowel sounds, soft. ABSENT: distended, guarding, mass, organolmegaly, rebound, tenderness Rectal exam: PRESENT: deferred Extremities exam: PRESENT: full ROM. ABSENT: calf tenderness, clubbing, pedal edema Neurological exam: PRESENT: alert, awake, oriented to person, oriented to place, oriented to time, oriented to situation, CN II-XII grossly intact. ABSENT: motor sensory deficit Results Laboratory Results: WBC 12.6 10^3/uL (4.0-10.5) H 08/18/19 06:00 RBC 3.38 10^6/uL (4.35-5.55) L 08/18/19 06:00 Hgb 10.0 g/dL (13.5-17.0) L 08/18/19 06:00 Hct 29.8 % (37.9-51.0) L 08/18/19 06:00 MCV 88 fl (80-97) 08/18/19 06:00 MCH 29.5 pg (27.0-33.4) 08/18/19 06:00 MCHC 33.5 g/dL (32.0-36.0) 08/18/19 06:00 RDW 15.4 % (11.5-14.0) H 08/18/19 06:00 Plt Count 332 10^3/uL (150-450) 08/18/19 06:00 Lymph % (Auto) 13.4 % (13-45) 08/18/19 06:00 [place] % (Auto) 10.1 % (3-13) 08/18/19 06:00 Eos % (Auto) 1.3 % (0-6) 08/18/19 06:00 Baso % (Auto) 0.5 % (0-2) 08/18/19 06:00 Absolute Neuts (auto) 9.4 10^3/uL (1.7-8.2) H 08/18/19 06:00 Absolute Lymphs (auto) 1.7 10^3/uL (0.5-4.7) 08/18/19 06:00 Absolute Monos (auto) 1.3 10^3/uL (0.1-1.4) 08/18/19 06:00 Absolute Eos (auto) 0.2 10^3/uL (0.0-0.6) 08/18/19 06:00 Absolute Basos (auto) 0.1 10^3/uL (0.0-0.2) 08/18/19 06:00 Total Counted 100 08/15/19 12:35 Seg Neutrophils % 74.7 % (42-78) 08/18/19 06:00 Seg Neuts % (Manual) 83 % (42-78) H 08/15/19 12:35 Lymphocytes % (Manual) 11 % (13-45) L 08/15/19 12:35 Atypical Lymphs % 1 % (0) 08/15/19 12:35 Monocytes % (Manual) 5 % (3-13) 08/15/19 12:35 Eosinophils % (Manual) 0 % (0-6) 08/15/19 12:35 Basophils % (Manual) 0 % (0-2) 08/15/19 12:35 Abs Neuts (Manual) 19.1 10^3/uL (1.7-8.2) H 08/15/19 12:35 Abs Lymphs (Manual) 2.8 10^3/uL (0.5-4.7) 08/15/19 12:35 Abs Monocytes (Manual) 1.2 10^3/uL (0.1-1.4) 08/15/19 12:35 Absolute Eos (Manual) 0.0 10^3/uL (0.0-0.6) 08/15/19 12:35 Abs Basophils (Manual) 0.0 10^3/uL (0.0-0.2) 08/15/19 12:35 Platelet Comment ADEQUATE 08/15/19 12:35 Anisocytosis SLIGHT 08/15/19 12:35 Ovalocytes SLIGHT 08/15/19 12:35 Schistocytes SLIGHT 08/15/19 12:35 Sodium 135.4 mmol/L (137-145) L 08/18/19 06:00 Potassium 4.2 mmol/L (3.6-5.0) 08/18/19 06:00 Chloride 101 mmol/L (98-107) 08/18/19 06:00 Carbon Dioxide 25 mmol/L (22-30) 08/18/19 06:00 Anion Gap 9 (5-19) 08/18/19 06:00 BUN 15 mg/dL (7-20) 08/18/19 06:00 Creatinine 1.11 mg/dL (0.52-1.25) 08/18/19 06:00 Est GFR ( Amer) > 60 (>60) 08/18/19 06:00 Est GFR (MDRD) Non-Af > 60 (>60) 08/18/19 06:00 Glucose 89 mg/dL (75-110) 08/18/19 06:00 Lactic Acid 1.1 mmol/L (0.7-2.1) 08/15/19 19:00 Calcium 8.2 mg/dL (8.4-10.2) L 08/18/19 06:00 Total Bilirubin 1.0 mg/dL (0.2-1.3) 08/15/19 12:35 Direct Bilirubin 0.3 mg/dL (0.0-0.4) 08/15/19 12:35 Neonat Total Bilirubin Not Reportable 08/15/19 12:35 Neonat Direct Bilirubin Not Reportable 08/15/19 12:35 Neonat Indirect Bili Not Reportable 08/15/19 12:35 AST 26 U/L (17-59) 08/15/19 12:35 ALT 14 U/L (<50) 08/15/19 12:35 Alkaline Phosphatase 93 U/L (38-126) 08/15/19 12:35 Total Protein 6.9 g/dL (6.3-8.2) 08/15/19 12:35 Albumin 3.3 g/dL (3.5-5.0) L 08/15/19 12:35 Lipase 142.2 U/L (23-300) 08/15/19 12:35 TSH 1.46 uIU/mL (0.47-4.68) 08/15/19 19:00 Free T4 1.62 ng/dL (0.78-2.19) 08/15/19 19:00 Free T3 pg/mL 1.77 pg/mL (2.77-5.27) L 08/15/19 19:00 Urine Color RON 08/15/19 12:35 Urine Appearance SLIGHTLY-CLOUDY 08/15/19 12:35 Urine pH 5.0 (5.0-9.0) 08/15/19 12:35 Ur Specific [place] 1.013 08/15/19 12:35 Urine Protein 30 mg/dL (NEGATIVE) H 08/15/19 12:35 Urine Glucose (UA) NEGATIVE mg/dL (NEGATIVE) 08/15/19 12:35 Urine Ketones TRACE mg/dL (NEGATIVE) H 08/15/19 12:35 Urine Blood NEGATIVE (NEGATIVE) 08/15/19 12:35 Urine Nitrite (Reflex) NEGATIVE (NEGATIVE) 08/15/19 12:35 Urine Bilirubin NEGATIVE (NEGATIVE) 08/15/19 12:35 Urine Urobilinogen 2.0 mg/dL (<2.0) H 08/15/19 12:35 Leukocyte Esterase Rfl MODERATE (NEGATIVE) H 08/15/19 12:35 Urine RBC (Auto) 2 /HPF 08/15/19 12:35 U Hyaline Cast (Auto) 13 /LPF 08/15/19 12:35 Urine Bacteria (Auto) 3+ /HPF 08/15/19 12:35 Urine WBC (Reflex) 80 /HPF 08/15/19 12:35 Urine Mucus (Auto) MOD /LPF 08/15/19 12:35 Urine Ascorbic Acid NEGATIVE (NEGATIVE) 08/15/19 12:35 Impressions: Abdomen/Pelvis CT 08/15/19 00:00 IMPRESSION: Right hydronephrosis with dilatation of the proximal ureter. No obstructing calculus is seen. Mild diverticulosis. Slight thickening of the bladder wall may be secondary to bladder outlet obstruction or cystitis. Correlate clinically. There is nodular protrusion of the prostate gland into the base of the bladder. Chest CT 08/15/19 00:00 IMPRESSION: Chronic lung changes. Thoracic spondylosis. 4 mm right pulmonary nodule. Cervical Spine X-Ray 08/15/19 12:28 IMPRESSION: 1. No definite acute bony abnormality of the cervical spine. 2. Moderate to severe multilevel degenerative change greatest at C5-6. Multilevel facet arthropathy. Shoulder X-Ray 08/15/19 12:28 IMPRESSION: No acute bony abnormality. 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 Thoracic Spine X-Ray 08/15/19 12:28 IMPRESSION: No definite acute bony abnormality. Degenerative changes with multilevel disc height loss and prominent anterolateral osteophyte at the midthoracic spine. Decreased osseous mineralization. Chest X-Ray 08/15/19 17:34 IMPRESSION: No acute cardiopulmonary findings. Unusual appearance of the right hilum may be secondary to large thoracic spine osteophytes. Consider CT if clinically indicated. Guidance Fluoroscopy 08/17/19 00:00 IMPRESSION: Successful placement of a 5 Vietnamese x 48 cm double-lumen PICC via the left brachial vein utilizing fluoroscopic and sonographic guidance. Interventional Vascular Procedure 08/17/19 00:00 IMPRESSION: Successful placement of a 5 Vietnamese x 48 cm double-lumen PICC via the left brachial vein utilizing fluoroscopic and sonographic guidance. PICC Line Insertion 08/17/19 14:02 IMPRESSION: Successful placement of a 5 Vietnamese x 48 cm double-lumen PICC via the left brachial vein utilizing fluoroscopic and sonographic guidance. Stroke Is this a Stroke Patient?: No Acute Heart Failure - Is this a Heart Failure Patient?: No
== END 2019-08-18 15:12 | disposition home health service (06) | DRG 690 ==
LOC: ER 11:28 → EH 18:30 → OBSVTOIN 18:30 → 5 19:56
PROVIDERS: ADMIT Internal Medicine; ATTEND Internal Medicine
PROC: 02HV33Z Insertion of Infusion Device into Superior Vena Cava, Percutaneous Approach (ICD-10-PCS; principal; 2019-08-17)
PROC: B548ZZA Ultrasonography of Superior Vena Cava, Guidance (ICD-10-PCS; 2019-08-17)
PROC: B518ZZA Fluoroscopy of Superior Vena Cava, Guidance (ICD-10-PCS; 2019-08-17)
DX: N10 Acute pyelonephritis (principal); R78.81 Bacteremia; N17.9 Acute kidney failure, unspecified; B96.20 Unspecified Escherichia coli [E. coli] as the cause of diseases classified elsewhere; D72.829 Elevated white blood cell count, unspecified; J44.9 Chronic obstructive pulmonary disease, unspecified; R63.4 Abnormal weight loss; M75.101 Unspecified rotator cuff tear or rupture of right shoulder, not specified as traumatic; G89.29 Other chronic pain; F17.210 Nicotine dependence, cigarettes, uncomplicated; E86.0 Dehydration; E89.0 Postprocedural hypothyroidism; Z66 Do not resuscitate; F32.9 Major depressive disorder, single episode, unspecified
CPT/HCPCS: 36415; 36569; 71046; 71250; 72040; 72070; 74176; 76937; 77001; 80048; 80053; 81001; 83605; 83690; 84439; 84443; 84481; 85025; 87040; 87077; 87086; 87088; 87150; 87186; 96365; 99285; C1751; J0696; J1642; J3490; J7030; J7620

== ENCOUNTER 2019-08-24 19:51 | Emergency (ER) | payer MEDICARE, OTHER ==
--- NOTE | 2019-08-24 20:35 | ER Document Report ---
ED Medical Screen (RME) - General Stated Complaint: BLOOD IN URINE Time Seen by Provider: 08/24/19 20:30 Primary Care Provider: RICHARD MANZO III, MD [Primary Care Provider] - Follow up as needed TRAVEL OUTSIDE OF THE [place] IN LAST 30 DAYS: No - HPI Notes: 08/24/19 20:34 Patient is a 78-year-old male with a history of COPD, hyperthyroidism, recent bacteremia/PANKAJ/UTI (discharged 08/18/19) presents complaining of noticing hematuria over the past couple days. He otherwise is able to eat and drink without difficulty. He is having normal bowel movements. Denies drug allergies. No fever, chest pain, shortness of breath, abdominal pain, nausea/vomiting. I have treated and performed a rapid initial assessment of this patient. A comprehensive ED assessment and evaluation of the patient, analysis of test results and completion of medical decision making process will be conducted by additional ED providers. PHYSICAL EXAMINATION: GENERAL: Well-appearing, well-nourished and in no acute distress. A&Ox4. Answers questions appropriately. - Related Data Allergies/Adverse Reactions: No Known Allergies Allergy (Verified 08/15/19 12:24) Past Medical History - Past Medical History Cardiac Medical History: Reports: Hx Hypertension Denies: Hx Heart Attack Pulmonary Medical History: Reports: Hx COPD Denies: Hx Asthma Neurological Medical History: Denies: Hx Cerebrovascular Accident, Hx Seizures GI Medical History: Reports: Hx Ulcer - SURG. Denies: Hx Hepatitis, Hx Hiatal Hernia Psychiatric Medical History: Reports: Hx Depression Infectious Medical History: Denies: Hx Hepatitis Past Surgical History: Denies: Hx Open Heart Surgery, Hx Pacemaker Physical Exam - Vital signs Vitals: Temp Pulse Resp BP Pulse Ox 98.6 F 98 16 120/92 H 99 08/24/19 20:18 08/24/19 20:18 08/24/19 20:18 08/24/19 20:18 08/24/19 20:18 Course - Vital Signs Vital signs: Temp Pulse Resp BP Pulse Ox 98.6 F 98 16 120/92 H 99 08/24/19 20:18 08/24/19 20:18 08/24/19 20:18 08/24/19 20:18 08/24/19 20:18 Doctor's Discharge - Discharge Referrals: RICHARD MANZO III, MD [Primary Care Provider] - Follow up as needed
[2019-08-24 21:09] LABS: ABSOLUTE EOSINOPHILS # (AUTO) 0.1 10^3/uL (0.0-0.6); ABSOLUTE LYMPHOCYTES (AUTO) 2.4 10^3/uL (0.5-4.7); ABSOLUTE MONOCYTES (AUTO) 0.8 10^3/uL (0.1-1.4); ABSOLUTE NEUT (AUTO) 7.8 10^3/uL (1.7-8.2); BASOPHILS % (AUTO) 0.3 % (0-2); EOSINOPHILS % (AUTO) 0.9 % (0-6); HEMATOCRIT 33.9 % (37.9-51.0); HEMOGLOBIN 11.4 g/dL (13.5-17.0); LYMPHOCYTES % (AUTO) 21.4 % (13-45); MEAN CORPUSCULAR HEMOGLOBIN 29.5 pg (27.0-33.4); MEAN CORPUSCULAR HGB CONC 33.5 g/dL (32.0-36.0); MEAN CORPUSCULAR VOLUME 88 fl (80-97); MONOCYTES % (AUTO) 7.2 % (3-13); PLATELET COUNT 433 10^3/uL (150-450); RED BLOOD COUNT 3.86 10^6/uL (4.35-5.55); RED CELL DISTRIBUTION WIDTH 15.9 % (11.5-14.0); SEGMENTED NEUTROPHILS % (AUTO) 70.2 % (42-78); TOTAL CELLS COUNTED % (AUTO) 100 %; WHITE BLOOD COUNT 11.1 10^3/uL (4.0-10.5)
[2019-08-24 21:25] LABS: ALBUMIN 3.7 g/dL (3.5-5.0); ALKALINE PHOSPHATASE 93 U/L (38-126); ANION GAP 12 (5-19); ASPARTATE AMINO TRANSFERASE 20 U/L (17-59); BILIRUBIN,DIRECT 0.3 mg/dL (0.0-0.4); BILIRUBIN,TOTAL 0.3 mg/dL (0.2-1.3); BLOOD UREA NITROGEN 18 mg/dL (7-20); CALCIUM 9.3 mg/dL (8.4-10.2); CARBON DIOXIDE 30 mmol/L (22-30); CHLORIDE 96 mmol/L (98-107); GLUCOSE 101 mg/dL (75-110); POTASSIUM 4.5 mmol/L (3.6-5.0)
--- NOTE | 2019-08-24 22:26 | ER Document Report ---
ED GI/ - General Chief Complaint: Urinary Problem Stated Complaint: BLOOD IN URINE Time Seen by Provider: 08/24/19 20:30 Primary Care Provider: RICHARD MANZO III, MD [Primary Care Provider] - Follow up as needed Notes: Patient is a 78-year-old male that comes emergency department for chief complaint of hematuria. He states he started noticing this yesterday. He denies abdominal pain, flank pain, nausea or vomiting. He states he does frequently urinate in small amounts but states this is not new for him. He does not report a history of kidney stones. He was admitted to this facility and discharged on 08/18/2019 after being treated for bacteremia from a UTI and currently has a PICC line in place and is receiving antibiotics at home daily. He cannot tell me the antibiotic he is being given. He is not on a blood thinner reportedly. He denies any other complaints. TRAVEL OUTSIDE OF THE [place] IN LAST 30 DAYS: No - Related Data Allergies/Adverse Reactions: No Known Allergies Allergy (Verified 08/15/19 12:24) Home Medications: med through PICC line daily Past Medical History - General Information source: Patient - Social History Smoking Status: Current Every Day Smoker Frequency of alcohol use: None Drug Abuse: None Lives with: Friend Family History: None Patient has suicidal ideation: No Patient has homicidal ideation: No - Past Medical History Cardiac Medical History: Reports: Hx Hypertension Denies: Hx Heart Attack Pulmonary Medical History: Reports: Hx COPD Denies: Hx Asthma Neurological Medical History: Denies: Hx Cerebrovascular Accident, Hx Seizures GI Medical History: Reports: Hx Ulcer - SURG. Denies: Hx Hepatitis, Hx Hiatal Hernia Psychiatric Medical History: Reports: Hx Depression Infectious Medical History: Denies: Hx Hepatitis Past Surgical History: Denies: Hx Open Heart Surgery, Hx Pacemaker - Immunizations Immunizations up to date: Yes Hx Diphtheria, Pertussis, Tetanus Vaccination: Yes Review of Systems - Review of Systems Constitutional: No symptoms reported EENT: No symptoms reported Cardiovascular: No symptoms reported Respiratory: No symptoms reported Gastrointestinal: No symptoms reported Genitourinary: See HPI Male Genitourinary: No symptoms reported Musculoskeletal: No symptoms reported Skin: No symptoms reported Hematologic/Lymphatic: No symptoms reported Neurological/Psychological: No symptoms reported Physical Exam - Vital signs Vitals: Temp Pulse Resp BP Pulse Ox 98.6 F 98 16 120/92 H 99 08/24/19 20:18 08/24/19 20:18 08/24/19 20:18 08/24/19 20:18 08/24/19 20:18 - Notes Notes: GENERAL: Alert, interacts well. No acute distress. HEAD: Normocephalic, atraumatic. EYES: Pupils equal, round, and reactive to light. Extraocular movements intact. ENT: Oral mucosa moist, tongue midline. Oropharynx unremarkable. Airway patent. LUNGS: Clear to auscultation bilaterally, no wheezes, rales, or rhonchi. No respiratory distress. HEART: Regular rate and rhythm. No murmur ABDOMEN: Soft, non-tender. Non-distended. Bowel sounds present in all 4 quadrants. GENITOURINARY: No swelling, bleeding from the urethra, tenderness over the scrotum, or concerning findings noted on exam. EXTREMITIES: Moves all 4 extremities spontaneously. No edema, normal radial and dorsalis pedis pulses bilaterally. No cyanosis. BACK: no cervical, thoracic, lumbar midline tenderness. No saddle anesthesia, normal distal neurovascular exam. Moves all extremities in full range of motion. NEUROLOGICAL: Alert and oriented x3. Normal speech. Cranial nerves II through XII grossly intact. PSYCH: Normal affect, normal mood. SKIN: Warm, dry, normal turgor. No rashes or lesions noted. Course - Re-evaluation Re-evalutation: 08/25/19 01:15 I called and spoke with Dr. Adames, Urology at [facility]. He reviewed the images, he states based on patient's history and the images he is concerned that this is indeed cancer, he states that a stent would either not be successful or would almost immediately clot over, he states that patient needs an nephrostomy tube initially before the next step. He recommends that I speak to interventional radiology for this to be placed. He does not recommend transfer at this time as there is no other indicated emergent need. I called and spoke with Regino with interventional radiology, he states his recommendation is for patient to be admitted under observation status to the hospital and during the day patient can have a nephrostomy tube placed by them. 08/25/19 02:04 I have spoken to Dr. Smiley. He states he is concerned about admitting the patient without urology coverage, he is concerned the patient might become unstable and then would need to be transferred to a tertiary center. Explained that the patient is not unstable at this time and the recommendation is either from nephrostomy tube to be placed ideally today by interventional radiology or if this cannot happen at this hospital patient can be discharged to follow-up in the office with Dr. Adames. This was the specific direction of Dr. Adames. Dr. Smiley still does not accept the patient. However I have spoken with Regino and he did agree that they will come in in the morning and they will be placing the nephrostomy tube, patient will be waiting for the procedure to be performed. Patient states understanding and appreciation. 08/25/19 07:29 Patient has been kept n.p.o. I called again and spoke with Regino, informed him that the patient is in the emergency department still at this time. Plan states that he needs to look at the images and talk to the radiologist, he states that there is a possibility that they do not have the right equipment and he will request the patient be transferred to the emergency department at [facility] so this can be performed and patient can be sent home from there. He states he will call back. 08/25/19 08:22 Patient introduced to Ciera Muir [employer] at bedside pending disposition. - Vital Signs Vital signs: Temp Pulse Resp BP Pulse Ox 98.8 F 98 16 118/58 L 96 08/25/19 06:01 08/24/19 20:18 08/25/19 07:01 08/25/19 07:00 08/25/19 07:01 - Laboratory Result Diagrams: 08/24/19 20:50 08/24/19 20:50 Laboratory results interpreted by me: 08/24/19 08/24/19 08/24/19 20:50 20:50 22:20 WBC 11.1 H RBC 3.86 L Hgb 11.4 L Hct 33.9 L RDW 15.9 H Chloride 96 L Creatinine 1.42 H Est GFR ( Amer) 58 L Est GFR (MDRD) Non-Af 48 L Urine Protein 100 H Urine Blood LARGE H Discharge - Discharge Clinical Impression: Mass of urethra, Bony metastasis Hematuria Qualifiers: Hematuria type: gross Qualified Code(s): R31.0 - Gross hematuria Condition: Stable Disposition: HOME, SELF-CARE Referrals: RICHARD MANZO III, MD [Primary Care Provider] - Follow up as needed
[2019-08-24 22:53] LABS: APPEARANCE,URINE CLOUDY; BILIRUBIN,URINE NEGATIVE (NEGATIVE); COLOR,URINE RED; GLUCOSE, URINE NEGATIVE (NEGATIVE); KETONES,URINE NEGATIVE (NEGATIVE); LEUKOCYTE ESTERASE,URINE NEGATIVE (NEGATIVE); NITRITE,URINE NEGATIVE (NEGATIVE); PROTEIN,URINE 100 mg/dL (NEGATIVE); URINE SPECIFIC GRAVITY 1.021; UROBILINOGEN,URINE NEGATIVE mg/dL (<2.0)
[2019-08-24] MEDS ORDERED: NORMAL SALINE 1000 ML 1,000 ML IV ONE (23:14)
--- NOTE | 2019-08-25 00:19 | RADIOLOGY REPORT (SQ) ---
CT ABDOMEN AND PELVIS WITH INTRAVENOUS CONTRAST: 08/24/2019 11:13 PM [facility] ORTHOPED[facility] DENTIST HISTORY: 78-year old with hematuria. COMPARISON: CT of abdomen and pelvis from earlier on the same day TECHNIQUE: Axial contiguous images were obtained from the lung bases to the proximal femurs with intravenous intravenous contrast administered. Sagittal and coronal reconstructions were also obtained and reviewed. This exam was performed according to our departmental dose-optimization program, which includes automated exposure control, adjustment of the mA and/or KV according to the patient's size and/or use of iterative reconstruction technique. FINDINGS: No focal consolidative airspace opacities are seen. No discrete pleural effusion is seen. Coronary artery calcifications are seen. The visualized hepatic parenchyma is unremarkable. No focal enhancing lesion is seen. The gallbladder demonstrates no evidence of calcified gallstones The spleen, pancreas, and adrenals are normal in size and contour. There is moderate right hydronephrosis to the level of the mid right ureter. There is some soft tissue fullness and urothelial thickening and enhancement seen at the mid right ureter. This area measures at least 2.1 x 2.0 cm. There is diffuse urothelial enhancement also present. There is some trace fluid seen around the anterior aspect of the right kidney. The right kidney demonstrates overall decreased enhancement with urothelial enhancement of the right renal pelvis. Bladder is minimally distended, but grossly appears unremarkable. There is nonspecific bladder wall thickening, particularly along the right base of the bladder. This measures up to seven 8 mm in transverse dimension. The stomach is not well distended. The small bowel loops appear unremarkable. No pericolonic inflammatory stranding is seen. There are multiple diverticula seen within the sigmoid and descending colon, without evidence to suggest diverticulitis. There are postsurgical changes consistent with right hemicolectomy. There is no evidence of pneumoperitoneum . The aorta and IVC appear normal in size. There is moderate atherosclerotic calcification throughout the abdominal aorta and into the iliac arteries. No significantly enlarged lymph nodes are seen in the abdomen or pelvis. There are multilevel degenerative changes within the lumbar spine. There is some irregular expansile lytic change seen at the right lower pelvis which could be due to hydrocephalus disease or underlying malignancy. There is some irregular lytic change within the pelvis, particularly at the bilateral iliac bones which could be due to an underlying malignancy. IMPRESSION: There is moderate right hydronephrosis secondary to a mass/urothelial enhancement and thickening to the level the mid right ureter. This area measures at least 2.1 x 2.0 cm. This is worrisome for possible mass, less likely from infection. There may be some superimposed infection within the right kidney which demonstrates overall decreased enhancement with urothelial enhancement. There is some bladder wall thickening of the right lateral bladder which could be due to infection or developing neoplasm. I There is some irregular lytic change seen at the pelvis which could be secondary to metastatic disease. There is some trace fluid seen anterior to the right kidney.
[2019-08-25] MEDS ORDERED: ONDANSETRON HCL INJ/PF 4 MG/2 ML SDV IV ONE (02:25)
[2019-08-25] MEDS ORDERED: MORPHINE SULFATE 10 MG/ML INJ IV ONE (02:25)
[2019-08-25 09:13] VITALS: BP 122/67
== END 2019-08-25 09:17 | disposition home or self-care (01) ==
LOC: ER 19:51
DX: N36.8 Other specified disorders of urethra (principal); C79.51 Secondary malignant neoplasm of bone; R31.0 Gross hematuria; F17.200 Nicotine dependence, unspecified, uncomplicated; I10 Essential (primary) hypertension; J44.9 Chronic obstructive pulmonary disease, unspecified; Z79.2 Long term (current) use of antibiotics
CPT/HCPCS: 36415; 87086; 85025; 80053; 81001; 74177; J2270; J2405; J7030; 99284

== ENCOUNTER 2019-12-26 01:39 | Emergency (ER) | payer MEDICARE, OTHER ==
--- NOTE | 2019-12-26 02:17 | ER Document Report ---
ED Medical Screen (RME) - General Stated Complaint: BACK PAIN Time Seen by Provider: 12/26/19 02:09 Primary Care Provider: RICHARD MANZO III, MD [Primary Care Provider] - Follow up as needed Notes: Patient is a 79-year-old male who presents to the emergency department with a chief complaint of right flank pain. Patient states that he had a stent placed by [facility] urology. He missed his follow-up appointment and is stating that he now has back pain. States the pain is primarily on his right side. Also states that for the past 3 days, he has been having swelling in bilateral lower extremities. Exam: CVA tenderness on right side. 3+ pitting edema to bilateral lower extremities. I have greeted and performed a rapid initial assessment of this patient. A comprehensive ED assessment and evaluation of the patient, analysis of test results and completion of medical decision making process will be conducted by an additional ED providers. TRAVEL OUTSIDE OF THE [place] IN LAST 30 DAYS: No - Related Data Allergies/Adverse Reactions: No Known Allergies Allergy (Verified 12/26/19 02:10) Past Medical History - Past Medical History Cardiac Medical History: Reports: Hx Hypertension Denies: Hx Heart Attack Pulmonary Medical History: Reports: Hx COPD Denies: Hx Asthma Neurological Medical History: Denies: Hx Cerebrovascular Accident, Hx Seizures GI Medical History: Reports: Hx Ulcer - SURG. Denies: Hx Hepatitis, Hx Hiatal Hernia Psychiatric Medical History: Reports: Hx Depression Infectious Medical History: Denies: Hx Hepatitis Past Surgical History: Denies: Hx Open Heart Surgery, Hx Pacemaker - Immunizations Immunizations up to date: Yes Hx Diphtheria, Pertussis, Tetanus Vaccination: Yes Doctor's Discharge - Discharge Referrals: RICHARD MANZO III, MD [Primary Care Provider] - Follow up as needed
[2019-12-26 02:37] LABS: ABSOLUTE BASOPHILS # (AUTO) 0.1 10^3/uL (0.0-0.2); ABSOLUTE EOSINOPHILS # (AUTO) 0.1 10^3/uL (0.0-0.6); ABSOLUTE LYMPHOCYTES (AUTO) 1.7 10^3/uL (0.5-4.7); ABSOLUTE MONOCYTES (AUTO) 1.1 10^3/uL (0.1-1.4); ABSOLUTE NEUT (AUTO) 9.3 10^3/uL (1.7-8.2); BASOPHILS % (AUTO) 0.4 % (0-2); EOSINOPHILS % (AUTO) 0.4 % (0-6); HEMATOCRIT 39.8 % (37.9-51.0); HEMOGLOBIN 13.5 g/dL (13.5-17.0); LYMPHOCYTES % (AUTO) 14.2 % (13-45); MEAN CORPUSCULAR HEMOGLOBIN 30.4 pg (27.0-33.4); MEAN CORPUSCULAR VOLUME 89 fl (80-97); MONOCYTES % (AUTO) 8.8 % (3-13); PLATELET COUNT 295 10^3/uL (150-450); RED BLOOD COUNT 4.46 10^6/uL (4.35-5.55); SEGMENTED NEUTROPHILS % (AUTO) 76.2 % (42-78); TOTAL CELLS COUNTED % (AUTO) 100 %; WHITE BLOOD COUNT 12.2 10^3/uL (4.0-10.5)
[2019-12-26 02:55] LABS: ALBUMIN 4.1 g/dL (3.5-5.0); ALKALINE PHOSPHATASE 107 U/L (38-126); ANION GAP 10 (5-19); ASPARTATE AMINO TRANSFERASE 27 U/L (17-59); BILIRUBIN,TOTAL 0.6 mg/dL (0.2-1.3); BLOOD UREA NITROGEN 25 mg/dL (7-20); CALCIUM 9.4 mg/dL (8.4-10.2); CARBON DIOXIDE 28 mmol/L (22-30); CHLORIDE 94 mmol/L (98-107); GLUCOSE 102 mg/dL (75-110); POTASSIUM 4.3 mmol/L (3.6-5.0)
--- NOTE | 2019-12-26 03:03 | ER Document Report ---
ED GI/ - General TRAVEL OUTSIDE OF THE [place] IN LAST 30 DAYS: No <RADHA WOLFE - Last Filed: 12/26/19 09:27> <MARSHALL BRICE Kayleen - Last Filed: 12/26/19 12:30> - General Chief Complaint: Flank Pain Stated Complaint: BACK PAIN Time Seen by Provider: 12/26/19 02:09 Primary Care Provider: RICHARD MANZO III, MD [NO LOCAL MD] - Follow up as needed Notes: Patient is a 79-year-old male who presents to the emergency department with a chief complaint of right flank pain. Patient states that he had a stent placed by [facility] urology. He missed his follow-up appointment and is stating that he now has back pain. States the pain is primarily on his right side. Also states that for the past 3 days, he has been having swelling in bilateral lower extremities. Patient was supposed to follow-up with taking his stent out 2 weeks ago, but did not go to his appointment. (RADHA WOLFE) - Related Data Allergies/Adverse Reactions: No Known Allergies Allergy (Verified 12/26/19 02:10) Past Medical History - Social History Smoking Status: Current Every Day Smoker Frequency of alcohol use: None Drug Abuse: None Family History: None Patient has homicidal ideation: No - Past Medical History Cardiac Medical History: Reports: Hx Hypertension Denies: Hx Heart Attack Pulmonary Medical History: Reports: Hx COPD Denies: Hx Asthma Neurological Medical History: Denies: Hx Cerebrovascular Accident, Hx Seizures GI Medical History: Reports: Hx Ulcer - SURG. Denies: Hx Hepatitis, Hx Hiatal Hernia Psychiatric Medical History: Reports: Hx Depression Infectious Medical History: Denies: Hx Hepatitis Past Surgical History: Denies: Hx Open Heart Surgery, Hx Pacemaker - Immunizations Immunizations up to date: Yes Hx Diphtheria, Pertussis, Tetanus Vaccination: Yes <ANNMARIE WOLFEASTON Bagley - Last Filed: 12/26/19 09:27> Review of Systems <YANETHRADHA M - Last Filed: 12/26/19 09:27> - Review of Systems Notes: REVIEW OF SYSTEMS: CONSTITUTIONAL : Denies recent illness. Denies recent unintentional weight loss. Denies fever, chills, or sweats. EENT: Denies eye, ear, throat, or mouth pain, discharge, or symptoms. Denies nasal or sinus congestion. CARDIOVASCULAR: Denies chest pain. RESPIRATORY: Denies shortness of breath, cough, congestion, difficulty breathing, or wheezing. GASTROINTESTINAL: Denies nausea, vomiting, and diarrhea. Denies abdominal pain. Denies constipation. GENITOURINARY: See HPI. MUSCULOSKELETAL: See HPI. SKIN: Denies rash, itchiness, or lesions HEMATOLOGIC : Denies easy bruising or bleeding. LYMPHATIC: Denies swollen, painful, enlarged glands. NEUROLOGICAL: Denies no numbness or tingling denies weakness. Denies headache. Denies altered mental status. Denies alteration in speech. PSYCHIATRIC: Denies stress, anxiety, alteration in sleep patterns, or depression. All other systems reviewed and negative. (RADHA WOLFE) Physical Exam <RADHA WOLFE - Last Filed: 12/26/19 09:27> - Vital signs Vitals: Temp 97.5 F 12/26/19 02:10 - Notes Notes: PHYSICAL EXAMINATION: GENERAL: Appears well, healthy, well-nourished, no acute distress. HEAD: Normocephalic, atraumatic. EYES: PERRL, conjunctiva normal, all extraocular movements intact, sclera nonicteric ENT: Moist mucous membranes. NECK: Supple, no noticeable swelling, redness, rash. Normal range of motion. LUNGS: Equal breath sounds bilaterally and clear to auscultation. No wheezes rales or rhonchi. CARDIOVASCULAR: S1-S2, regular rate, regular rhythm. Radial pulses 2+, normal. ABDOMEN: Normoactive bowel sounds. Soft, nontender, no guarding, no rebound tenderness, and no masses palpated. EXTREMITIES: Normal strength and range of motion. No cyanosis. 3+ pitting edema noted to bilateral feet and ankles. NEUROLOGICAL: Moves all extremities upon command. Strength 5/5 in all extremities. PSYCH: Normal mood, normal affect. SKIN: Warm, dry. No rash, lesions, ulcerations noted. Normal skin turgor. BACK: Right CVA tenderness. (YANETHRADHA M) Course - Laboratory Result Diagrams: 12/26/19 02:22 12/26/19 02:22 <YANETHRADHA Bagley - Last Filed: 12/26/19 09:27> - Laboratory Result Diagrams: 12/26/19 02:22 12/26/19 02:22 <MARSHALL BRICE - Last Filed: 12/26/19 12:30> - Re-evaluation Re-evalutation: 12/26/19 03:02 Dr. Luna, the radiologist called me in regards to the patient's CT of the abdomen pelvis. Patient states that his CT has gotten progressively worse from the last time he was seen here in August. 12/26/19 06:08 Hematology shows a slight leukocytosis of 12,200. Chemistries show sodium of 132 and a chloride of 94. BUN and creatinine are slightly elevated, but the patient has history of a slightly elevated creatinine in the past. Urine shows trace leukocytes and some protein. We will send urine for culture. I called [facility] and spoke with the transfer center. Will await callback from urology. 12/26/19 08:24 I called [facility] back, as I have not heard back from urology. They will page them again. 12/26/19 09:15 I received a call back from [facility] transfer center. She states that Dr. Adames, the urologist is currently in surgery. When he is out, he will give us a call back. Report given to Marshall Brice [employer]. He will fo llow-up with Dr. Adames. 12/26/19 09:18 (RADHA WOLFE) 12/26/19 09:31 Received on the patient. I did evaluate the patient. Patient is extremely poor historian. Unable to define when he received his stent, unable to define the type of cancer that he has, does state that he does not have an oncologist currently. We are awaiting callback from [facility] 12/26/19 11:[address] Adames, Urology at [facility]. Recommends a Avery catheter. As patient's lab work is otherwise unremarkable he is scheduled to see Dr. Bender on the for surgery. Has not seen oncology yet requested I call 1 of our oncology team to evaluate the patient outpatient. He does believe the patient may be outpatient but has missed multiple appointments. He did review the CT scan 12/26/19 11:[address] Peters, Oncology. Case was discussed. He did review the imagin g. Does agree patient needs to be followed by oncology. We will be happy to see the patient. Request that we speak with the patient and if he wishes to be seen today they will be happy to see him today. I also spoke with Ry Thomas, social group worker. Patient has missed 11 appointments with urology. This may be a social issue she will come see the patient 12/26/19 11:21 Spoke with the patient he would like to see the oncologist today, nursing will call to make his appointment. Will have social group worker address transport issues. (MARSHALL BRICE) - Vital Signs Vital signs: Temp Pulse Resp BP Pulse Ox 97.6 F 71 16 164/87 H 95 12/26/19 09:48 12/26/19 09:48 12/26/19 09:48 12/26/19 09:48 12/26/19 09:48 - Laboratory Laboratory results interpreted by me: 12/26/19 12/26/19 12/26/19 02:22 02:22 03:50 WBC 12.2 H RDW 15.0 H Absolute Neuts (auto) 9.3 H Sodium 132.1 L Chloride 94 L BUN 25 H Creatinine 1.76 H Est GFR ( Amer) 45 L Est GFR (MDRD) Non-Af 38 L Urine Protein 30 H Leukocyte Esterase Rfl TRACE H Discharge <YANETHRADHA M - Last Filed: 12/26/19 09:27> <MARSHALL BRICE - Last Filed: 12/26/19 12:30> - Discharge Clinical Impression: Urinary obstruction, Abnormal CT of the abdomen Back pain Qualifiers: Back pain location: low back pain Chronicity: unspecified Back pain laterality: unspecified Sciatica presence: without sciatica Qualified Code(s): M54.5 - Low back pain Condition: Fair Disposition: HOME, SELF-CARE Additional Instructions: Follow-up with Dr. Bender regarding your Avery catheter and possible further surgical intervention for the possible kidney cancer issue. There is concern based on your CT imaging today that you do have cancer and it may have spread to the liver. This needs to be further evaluated. An appointment has been scheduled for you with Dr. Peters for 130 today and you are going over to their office make sure that you are following up with them regarding further treatment options. Return for any concerns Referrals: RICHARD MANZO III, MD [NO LOCAL MD] - Follow up as needed QUIANA PETERS MD [ACTIVE STAFF] - Follow up as needed SILVIA BEDNER MD [NO LOCAL MD] - Follow up as needed
--- NOTE | 2019-12-26 03:04 | RADIOLOGY REPORT (SQ) ---
EXAM DESCRIPTION: [facility]Lex: CT ABDOMEN PELVIS WITHOUT IV CONTRAST CLINICAL HISTORY: 79 years Male; right flank pain; TECHNIQUE: CT of the abdomen and pelvis without contrast. All CT scans at this facility use dose modulation, iterative reconstruction, and/or weight based dosing when appropriate to reduce radiation dose to as low as reasonably achievable. COMPARISON: CT 08/24/2019 FINDINGS: Abdomen: Stomach: No significant distention or surrounding edema. Liver: Numerous slightly hypodense lesions scattered throughout the liver are new since prior exam. These measure up to 1.6 cm in diameter and are seen in all segments. Gallbladder:Nondistended Pancreas:Within normal limits Spleen:Within normal limits Right kidney: Ureteral stent extends from the upper pole into the bladder. Upper pole cystic areas 3 cm diameter, larger since prior exam. There is also associated renal cortical thinning. This could either be a cystic lesion, or a dilated calyx. Low-density lesions anterior to the upper pole are similar to prior exam, 5.2 cm LR by 2 cm AP by 6 cm SI. Circumferential edema versus soft tissue density along the right ureter is increased since prior exam. Left kidney:No hydronephrosis. No renal or ureteral calculi. Adrenal glands:Within normal limits Vascular structures: Extensive aortic and branch calcifications as on prior exam. Periaortic soft tissue density has increased at the level of the kidney, likely progression of retroperitoneal adenopathy. Pelvis: Small bowel:No significant distention. Appendix: Not identified Colon:No distention or acute pericolonic edema. No free intraperitoneal fluid or air. Bones: Severe chronic degenerative changes are again noted in the lumbar and lower thoracic spine. No acute fractures. Bladder: Incompletely distended. No calculi or adjacent edema. Prostate is grossly unremarkable, unchanged. Note that evaluation of the bowel and solid organs is somewhat limited due to lack of intravenous and oral contrast. THIS REPORT CONTAINS FINDINGS THAT MAY BE CRITICAL TO PATIENT CARE: The findings were verbally discussed via telephone conference with RADHA WOLFE at 2:02 AM CDT on 12/26/2019 . IMPRESSION: 1. Innumerable hepatic lesions, new since 08/24/2019, likely metastatic disease 2. Right ureteral stent in place. There is increased periureteral thickening along the proximal half of the ureter, highly suspicious for malignancy. Upper pole of the right kidney is distended, with the tip of the ureteral stent in the upper pole. No lower pole hydronephrosis. Cannot exclude renal malignancy on this noncontrast exam. 3. Increased right periaortic soft tissue density, likely metastatic retroperitoneal adenopathy.
[2019-12-26 04:10] LABS: APPEARANCE,URINE CLEAR; BILIRUBIN,URINE NEGATIVE (NEGATIVE); COLOR,URINE YELLOW; GLUCOSE, URINE NEGATIVE (NEGATIVE); KETONES,URINE NEGATIVE (NEGATIVE); PROTEIN,URINE 30 mg/dL (NEGATIVE); URINE SPECIFIC GRAVITY 1.011; UROBILINOGEN,URINE NEGATIVE mg/dL (<2.0)
[2019-12-26 04:21] LABS: BACTERIA,URINE TRACE /HPF; RBC,URINE RARE /HPF
[2019-12-26 09:49] VITALS: BP 164/87
== END 2019-12-26 13:04 | disposition home or self-care (01) ==
LOC: ER 01:39
DX: N13.9 Obstructive and reflux uropathy, unspecified (principal); K76.9 Liver disease, unspecified; R10.9 Unspecified abdominal pain; M54.5 Low back pain; R60.0 Localized edema; D72.829 Elevated white blood cell count, unspecified; Z96.0 Presence of urogenital implants; Z91.19 Patient's noncompliance with other medical treatment and regimen; F17.200 Nicotine dependence, unspecified, uncomplicated; I10 Essential (primary) hypertension; J44.9 Chronic obstructive pulmonary disease, unspecified
CPT/HCPCS: 36415; 51702; 74176; 80053; 81001; 85025; 87086; 87088; 87186; 99284

== ENCOUNTER 2019-12-26 22:33 | Emergency (ER) | payer MEDICARE, OTHER ==
[2019-12-26 22:52] VITALS: BP 112/79
--- NOTE | 2019-12-27 00:02 | ER Document Report ---
ED Medical Screen (RME) - General Chief Complaint: Blood in Catheter Stated Complaint: CATHETAR PROBLEM Time Seen by Provider: 12/26/19 23:47 Information source: Patient Notes: Patient presents reporting that he has had problems with his leg bag. Patient is uncertain how to take care of the bag and is uncertain how long he is supposed to wear the nath. Patient with poor memory and is unable to tell me pertinent aspects of his ER visit earlier today. Patient states that he drove here and even though he has memory problems he uses his GPS to help assist him. Patient with significant bilateral lower extremity edema. I have greeted and performed a rapid initial assessment of this patient. A comprehensive ED assessment and evaluation of the patient, analysis of test results and completion of the medical decision making process will be conducted by additional ED providers. TRAVEL OUTSIDE OF THE [place] IN LAST 30 DAYS: No - Related Data Allergies/Adverse Reactions: No Known Allergies Allergy (Verified 12/26/19 02:10) Past Medical History - Past Medical History Cardiac Medical History: Reports: Hx Hypertension Denies: Hx Heart Attack Pulmonary Medical History: Reports: Hx COPD Denies: Hx Asthma Neurological Medical History: Denies: Hx Cerebrovascular Accident, Hx Seizures GI Medical History: Reports: Hx Ulcer - SURG. Denies: Hx Hepatitis, Hx Hiatal Hernia Psychiatric Medical History: Reports: Hx Depression Infectious Medical History: Denies: Hx Hepatitis Past Surgical History: Denies: Hx Open Heart Surgery, Hx Pacemaker - Immunizations Immunizations up to date: Yes Hx Diphtheria, Pertussis, Tetanus Vaccination: Yes Physical Exam - Vital signs Vitals: Temp Pulse Resp BP 98.1 F 100 20 112/79 12/26/19 22:50 12/26/19 22:50 12/26/19 22:50 12/26/19 22:50 - General General appearance: Appears well, Alert Notes: 3+ bilateral lower extremity edema, blood noted to Nath bag, Nath catheter bag pulled through the posterior aspect of his pants and tangled - Neurological [place] Coma Scale Eye Opening: Spontaneous Andrea Coma Scale Verbal: Confused - Occasionally confused Andrea Coma Scale Motor: Obeys Commands Andrea Coma Scale Total: 14 Course - Vital Signs Vital signs: Temp Pulse Resp BP Pulse Ox 98.1 F 100 20 112/79 12/26/19 23:53 12/26/19 22:50 12/26/19 22:50 12/26/19 22:50
--- NOTE | 2019-12-27 00:43 | RADIOLOGY REPORT (SQ) ---
EXAM DESCRIPTION: CT HEAD WITHOUT IV CONTRAST COMPLETED DATE/TME: 12/26/2019 23:58 CLINICAL HISTORY: AMS, hx liver lesions, Mets COMPARISON: None available TECHNIQUE: Axial CT of the head obtained from the skull apex to the skull base without contrast. FINDINGS: No acute intracranial hemorrhage identified. No mass, mass effect, shift of the midline, abnormal extra-axial fluid collection or CT evidence of acute ischemic change identified. The ventricular system and sulcal spaces are mildly enlarged compatible with mild cerebral atrophy. Scattered areas of hypodensity throughout the supratentorial white matter are nonspecific and may be related to chronic small vessel ischemic change. The visualized paranasal sinuses and the mastoids are clear. No skull fracture identified. Visualized orbits and globes are unremarkable. Atherosclerotic calcification of the intracranial internal carotid arteries. IMPRESSION: 1. No acute intracranial abnormality by CT criteria. 2. If there is continued concern for metastatic disease MRI or contrast-enhanced CT would provide additional characterization. This exam was performed according to our departmental dose-optimization program, which includes automated exposure control, adjustment of the mA and/or kV according to patient size and/or use of iterative reconstruction technique.
[2019-12-27 01:44] LABS: ABSOLUTE LYMPHOCYTES (AUTO) 1.5 10^3/uL (0.5-4.7); ABSOLUTE NEUT (AUTO) 8.3 10^3/uL (1.7-8.2); BASOPHILS % (AUTO) 0.3 % (0-2); EOSINOPHILS % (AUTO) 0.5 % (0-6); HEMATOCRIT 41.4 % (37.9-51.0); HEMOGLOBIN 14.2 g/dL (13.5-17.0); LYMPHOCYTES % (AUTO) 13.4 % (13-45); MEAN CORPUSCULAR HGB CONC 34.3 g/dL (32.0-36.0); MEAN CORPUSCULAR VOLUME 91 fl (80-97); MONOCYTES % (AUTO) 9.4 % (3-13); PLATELET COUNT 295 10^3/uL (150-450); RED BLOOD COUNT 4.58 10^6/uL (4.35-5.55); RED CELL DISTRIBUTION WIDTH 15.1 % (11.5-14.0); SEGMENTED NEUTROPHILS % (AUTO) 76.4 % (42-78); TOTAL CELLS COUNTED % (AUTO) 100 %; WHITE BLOOD COUNT 10.8 10^3/uL (4.0-10.5)
[2019-12-27 04:09] LABS: ALBUMIN 3.7 g/dL (3.5-5.0); ALKALINE PHOSPHATASE 105 U/L (38-126); ANION GAP 8 (5-19); ASPARTATE AMINO TRANSFERASE 26 U/L (17-59); BILIRUBIN,TOTAL 0.8 mg/dL (0.2-1.3); BLOOD UREA NITROGEN 31 mg/dL (7-20); CALCIUM 9.4 mg/dL (8.4-10.2); CARBON DIOXIDE 30 mmol/L (22-30); CHLORIDE 94 mmol/L (98-107); GLUCOSE 114 mg/dL (75-110); POTASSIUM 4.6 mmol/L (3.6-5.0); TOTAL PROTEIN 6.5 g/dL (6.3-8.2)
== END 2019-12-27 04:22 | disposition left against medical advice (07) ==
LOC: ER 22:33
DX: Z46.6 Encounter for fitting and adjustment of urinary device (principal); R58 Hemorrhage, not elsewhere classified; R41.0 Disorientation, unspecified; I10 Essential (primary) hypertension; R60.0 Localized edema; J44.9 Chronic obstructive pulmonary disease, unspecified
CPT/HCPCS: 36415; 70450; 80053; 85025; 99281

== ENCOUNTER 2019-12-27 17:30 | Inpatient (IN) | payer MEDICARE, OTHER ==
[2019-12-27] MEDS ORDERED: NORMAL SALINE 1000 ML 1,000 ML IV ONE (19:29)
--- NOTE | 2019-12-27 19:41 | ER Document Report ---
ED General - General Chief Complaint: Problem with Urinary Catheter Stated Complaint: CATHETER PROBLEM Time Seen by Provider: 12/27/19 18:08 Primary Care Provider: RICHARD DENNIS MD [Primary Care Provider] - Follow up as needed TRAVEL OUTSIDE OF THE [place] IN LAST 30 DAYS: No - HPI Notes: Chief complaint: Concerned about Avery catheter and back pain HPI: 79-year-old man seen here several times recently because of urinary problems and also an undiagnosed renal mass. Comes back in today after having had placement of a Avery catheter because of possible obstructive symptoms. He thinks the Avery catheter is "out" noting that he seen some blood accumulating in the bag and he is concerned about this. This man admits that he is "completely forgetful" and has difficulty relating a salient history. I have been able to supplement information from the old medical record and also by speaking with Dr. Speedy Miramontes from oncology who has familiarity with this case. Basically this man was admitted to the hospitalist service back in August of this year for COPD exacerbation and during that time was noted to have a renal mass that he was supposed to have followed up by urology. He still not had any definitive care for this. Urology had noted that he was having some obstructive symptoms and they wanted a Avery catheter placed which has subsequently been done. He was seen here yesterday in the emergency department by another provider and referred to the oncology clinic where he was seen by Dr. Peters. Imaging that had been obtained here included a normal noncontrast head CT and a CT abdomen pelvis that shows a left renal mass with evidence of bone and liver metastases. Oncology initially planned to work this up initially but the patient failed to set up an appointment for liver biopsy per their recommendation. He is now come back into the emergency department and clearly is unable to cope. He lives alone. He is complaining of increasing flank pain and difficulty finding comfortable position to sit. Amazingly he drove himself here tonight although not sure how he was able to do this. Current medications: Buspirone HCl [Buspar 10 mg Tablet] 5 mg PO Q12 #30 tablet Lidocaine [Lidoderm 5% (700 mg) Transdermal Patch] 1 patch TP DAILY PRN #20 adh..patch PRN Reason: Nicotine [Nicoderm 21 mg/24 Hr Transderm Patch] 1 each TD DAILY #30 patch.td24 Donepezil HCl [Aricept 5 mg Tablet] 5 mg PO DAILY 08/15/19 Hydroxyzine HCl [Atarax 10 mg Tablet] 25 mg PO QPM 08/15/19 - Related Data Allergies/Adverse Reactions: No Known Allergies Allergy (Verified 12/27/19 17:54) Home Medications: Lasix Past Medical History - General Information source: Patient, [facility] Records Cannot obtain history due to: Dementia - Social History Smoking Status: Current Every Day Smoker Chew tobacco use (# tins/day): No Frequency of alcohol use: Social Drug Abuse: None Family History: None Patient has homicidal ideation: No - Past Medical History Cardiac Medical History: Reports: Hx Hypertension Denies: Hx Heart Attack Pulmonary Medical History: Reports: Hx COPD Denies: Hx Asthma Neurological Medical History: Denies: Hx Cerebrovascular Accident, Hx Seizures GI Medical History: Reports: Hx Ulcer - SURG. Denies: Hx Hepatitis, Hx Hiatal Hernia Psychiatric Medical History: Reports: Hx Depression Infectious Medical History: Denies: Hx Hepatitis Past Surgical History: Reports: Hx Abdominal Surgery. Denies: Hx Open Heart Michelle norma, Hx Pacemaker - Immunizations Immunizations up to date: Yes Hx Diphtheria, Pertussis, Tetanus Vaccination: Yes Review of Systems - Review of Systems -: Yes ROS unobtainable due to patient's medical condition Physical Exam - Vital signs Vitals: Temp Pulse Resp BP Pulse Ox 99.0 F 99 20 145/76 H 98 12/27/19 17:33 12/27/19 17:33 12/27/19 17:33 12/27/19 17:33 12/27/19 17:33 - Notes Notes: GENERAL: Elderly man mildly confused and appearing very uncomfortable complaining of flank pain. SKIN: Good turgor no rashes. HEAD: Normocephalic atraumatic. EYES: PERRLA. EOMI. Conjunctivae and sclerae clear. EARS: CANALS AND TMS CLEAR. NOSE: CLEAR. MOUTH: Moist mucosa. Good dentition. No stridor or edema. No drooling. NECK: Supple. No masses or thyromegaly. No adenopathy. Carotids 2+ without bruits. No JVD. BACK: Symmetrical without tenderness. CHEST: Respirations unlabored. Breath sounds clear and symmetrical. HEART: Regular rhythm. No murmur gallop or rub. ABDOMEN: Soft nontender without masses, organomegaly or rebound. Bowel sounds normally active. No bruits. GENITALIA: Avery catheter in situ with drainage of clear urine. He does have some old blood in the leg bag. EXTREMITIES: Bilateral healed knee replacement scars. 2+ pedal edema. No calf tenderness. Cap refill less than 1.5 seconds. Dorsalis pedis and posterior tibial pulses 3+ and symmetrical. NEUROLOGICAL: GCS 15. Patient is oriented to person and place but not to day or date. Conversation is rambling. Moderate confabulation. Fluent speech. Cranial nerves II through XII intact. Sensorimotor and cerebellar normal. Normal tone. PSYCHIATRIC: Mildly confused affect. Course - Vital Signs Vital signs: Temp Pulse Resp BP Pulse Ox 99 F 99 20 145/76 H 98 12/27/19 17:54 12/27/19 17:33 12/27/19 17:33 12/27/19 17:33 12/27/19 17:33 Discharge - Discharge Clinical Impression: Renal mass with bone/liver metastases Dementia Qualifiers: Dementia type: unspecified type Dementia behavioral disturbance: without behavioral disturbance Qualified Code(s): F03.90 - Unspecified dementia without behavioral disturbance COPD (chronic obstructive pulmonary disease) Qualifiers: COPD type: unspecified COPD Qualified Code(s): J44.9 - Chronic obstructive pulmonary disease, unspecified Condition: Fair Disposition: ADMITTED INPATIENT Admitting Provider: Baljit (Hospitalist) Unit Admitted: Telemetry Referrals: RICHARD DENNIS MD [Primary Care Provider] - Follow up as needed
[2019-12-27] MEDS ORDERED: IPRATROPIUM/ALBUTEROL 0.5-2.5 MG/3 ML AMPUL NEB PRN (19:57)
[2019-12-27] MEDS ORDERED: ACETAMINOPHEN 325 MG TABLET PO PRN (19:57)
[2019-12-27] MEDS ORDERED: MAG HYDROX/AL HYDROX/SIMETH SUSP 30 ML UDCUP PO PRN (19:57)
[2019-12-27] MEDS ORDERED: MAGNESIUM HYDROXIDE SUSP 30 ML UDCUP PO PRN (19:57)
[2019-12-27] MEDS ORDERED: NORMAL SALINE 1000 ML 1,000 ML IV PRN (20:00)
[2019-12-27 20:17] LABS: ABSOLUTE BASOPHILS # (AUTO) 0.1 10^3/uL (0.0-0.2); ABSOLUTE EOSINOPHILS # (AUTO) 0.1 10^3/uL (0.0-0.6); ABSOLUTE LYMPHOCYTES (AUTO) 1.6 10^3/uL (0.5-4.7); ABSOLUTE NEUT (AUTO) 7.5 10^3/uL (1.7-8.2); BASOPHILS % (AUTO) 1.1 % (0-2); EOSINOPHILS % (AUTO) 1.1 % (0-6); HEMATOCRIT 39.1 % (37.9-51.0); HEMOGLOBIN 13.5 g/dL (13.5-17.0); LYMPHOCYTES % (AUTO) 15.4 % (13-45); MEAN CORPUSCULAR HGB CONC 34.5 g/dL (32.0-36.0); MEAN CORPUSCULAR VOLUME 90 fl (80-97); MONOCYTES % (AUTO) 9.7 % (3-13); PLATELET COUNT 267 10^3/uL (150-450); RED BLOOD COUNT 4.36 10^6/uL (4.35-5.55); RED CELL DISTRIBUTION WIDTH 15.1 % (11.5-14.0); SEGMENTED NEUTROPHILS % (AUTO) 72.7 % (42-78); TOTAL CELLS COUNTED % (AUTO) 100 %; WHITE BLOOD COUNT 10.3 10^3/uL (4.0-10.5)
[2019-12-27 20:30] LABS: PARTIAL THROMBOPLASTIN TIME 29.1 SEC (23.5-35.8); PROTHROMBIN TIME 13.2 SEC (11.4-15.4)
[2019-12-27 20:36] LABS: ALKALINE PHOSPHATASE 102 U/L (38-126); ANION GAP 9 (5-19); ASPARTATE AMINO TRANSFERASE 29 U/L (17-59); BILIRUBIN,DIRECT 0.1 mg/dL (0.0-0.4); BILIRUBIN,TOTAL 0.8 mg/dL (0.2-1.3); BLOOD UREA NITROGEN 35 mg/dL (7-20); CALCIUM 8.9 mg/dL (8.4-10.2); CARBON DIOXIDE 27 mmol/L (22-30); CHLORIDE 94 mmol/L (98-107); GLUCOSE 101 mg/dL (75-110); TOTAL PROTEIN 7.1 g/dL (6.3-8.2)
[2019-12-27] MEDS: NICOTINE 7 MG/24 HR PATCH.TD24 TD SCH (21:04)
[2019-12-27] MEDS: HEPARIN SOD (PORCINE) 5,000 UNIT/ML 1 ML VIAL SUBCUT SCH (22:51)
[2019-12-27] MEDS: MORPHINE SULFATE 10 MG/ML INJ IV PRN (22:51)
[2019-12-27] MEDS ORDERED: MORPHINE SULFATE 10 MG/ML INJ IV ONE (23:59)
[2019-12-28 06:08] LABS: ABSOLUTE BASOPHILS # (AUTO) 0.1 10^3/uL (0.0-0.2); ABSOLUTE EOSINOPHILS # (AUTO) 0.1 10^3/uL (0.0-0.6); ABSOLUTE LYMPHOCYTES (AUTO) 1.6 10^3/uL (0.5-4.7); ABSOLUTE MONOCYTES (AUTO) 0.8 10^3/uL (0.1-1.4); ABSOLUTE NEUT (AUTO) 4.2 10^3/uL (1.7-8.2); BASOPHILS % (AUTO) 0.7 % (0-2); EOSINOPHILS % (AUTO) 1.9 % (0-6); HEMATOCRIT 36.9 % (37.9-51.0); HEMOGLOBIN 12.6 g/dL (13.5-17.0); LYMPHOCYTES % (AUTO) 23.1 % (13-45); MEAN CORPUSCULAR HEMOGLOBIN 30.7 pg (27.0-33.4); MEAN CORPUSCULAR HGB CONC 34.1 g/dL (32.0-36.0); MEAN CORPUSCULAR VOLUME 90 fl (80-97); SEGMENTED NEUTROPHILS % (AUTO) 62.3 % (42-78); TOTAL CELLS COUNTED % (AUTO) 100 %; WHITE BLOOD COUNT 6.7 10^3/uL (4.0-10.5)
[2019-12-28] MEDS: HEPARIN SOD (PORCINE) 5,000 UNIT/ML 1 ML VIAL SUBCUT SCH ×3 (06:23→23:32)
[2019-12-28 06:33] LABS: ANION GAP 6 (5-19); BLOOD UREA NITROGEN 29 mg/dL (7-20); CALCIUM 8.5 mg/dL (8.4-10.2); CARBON DIOXIDE 29 mmol/L (22-30); CHLORIDE 98 mmol/L (98-107); GLUCOSE 83 mg/dL (75-110); POTASSIUM 4.1 mmol/L (3.6-5.0)
--- NOTE | 2019-12-28 06:50 | PDOC H&P ---
History of Present Illness Admission Date/PCP: 12/27/19 20:16 RICHARD DENNIS MD Patient complains of: Avery dysfunction, weakness and back pain History of Present Illness: MARY MEYER is a 79 year old male with a past medical history of COPD, alcohol and tobacco dependence, right renal mass with right ureteral stent, deep vein thrombosis, dementia and physical debility. He presents with complaint of urinary catheter dysfunction, generalized weakness and back pain. Work-up reveals increased right renal mass of 6 x 2 x 5 cm with likely widespread hepatic metastasis. Patient confirms CODE STATUS of DNR/DNI, denies depression, admits to medication nonadherence stating he cannot remember what they are for or when to take them. With intractable pain and failure to thrive he is referred to the hospitalist for admission. Past Medical History Cardiac Medical History: Reports: Hypertension Denies: Myocardial Infarction Pulmonary Medical History: Reports: Chronic Obstructive Pulmonary Disease (COPD) Denies: Asthma Neurological Medical History: Denies: Seizures GI Medical History: Denies: Hepatitis, Hiatal Hernia Psychiatric Medical History: Reports: Alcohol Dependency, Tobacco Dependency Hematology: Denies: Anemia, Sickle Cell Disease Past Surgical History Past Surgical History: Denies: Pacemaker Social History Information Source: Patient Lives with: Alone Smoking Status: Current Every Day Smoker Electronic Cigarette use?: No Frequency of Alcohol Use: Heavy Hx Recreational Drug Use: No Drugs: None Hx Prescription Drug Abuse: No - Advance Directive Resuscitation Status: Do Not Resuscitate Family History Family History: Hypertension Parental Family History Reviewed: No - Unknown Children Family History Reviewed: No - Unknown Sibling(s) Family History Reviewed.: No - Unknown Medication/Allergy Home Medications: No Home Medications 08/25/19 Allergies/Adverse Reactions: No Known Allergies Allergy (Verified 12/27/19 17:54) Review of Systems ROS unobtainable: Due to mental status Neurological: PRESENT: confusion, weakness Physical Exam Vital Signs: Temp Pulse Resp BP Pulse Ox 97.3 F 78 18 157/77 H 100 12/28/19 03:27 12/28/19 03:27 12/28/19 03:27 12/28/19 03:27 12/28/19 03:27 Intake & Output 12/26/19 12/27/19 12/28/19 11:59 11:59 11:59 Intake Total 120 Output Total 800 Balance -680 Weight 83.2 kg General appearance: PRESENT: cooperative, thin, well-developed, other - Chronically ill-appearing with temporal wasting and global muscular atrophy. ABSENT: well-nourished Head exam: PRESENT: atraumatic, normocephalic Eye exam: PRESENT: conjunctiva pink, EOMI, PERRLA. ABSENT: scleral icterus Ear exam: PRESENT: normal external ear exam Mouth exam: PRESENT: moist, tongue midline Neck exam: ABSENT: carotid bruit, JVD, lymphadenopathy, thyromegaly Respiratory exam: PRESENT: accessory muscle use, crackles, prolonged expiratory phas, stridor, tachypnea. ABSENT: rhonchi Cardiovascular exam: PRESENT: RRR. ABSENT: diastolic murmur, rubs, systolic murmur Pulses: PRESENT: normal dorsalis pedis pul Vascular exam: PRESENT: normal capillary refill GI/Abdominal exam: PRESENT: normal bowel sounds, soft. ABSENT: distended, guarding, mass, organolmegaly, rebound, tenderness Rectal exam: PRESENT: deferred Extremities exam: PRESENT: +2 edema Neurological exam: PRESENT: alert, awake, oriented to person, oriented to place, oriented to situation, CN II-XII grossly intact. ABSENT: motor sensory deficit Psychiatric exam: PRESENT: appropriate affect, normal mood. ABSENT: homicidal ideation, suicidal ideation Skin exam: PRESENT: dry, intact, warm. ABSENT: cyanosis, rash Results Laboratory Results: 12/27/19 12/27/19 20:05 20:05 WBC 10.3 RBC 4.36 Hgb 13.5 Hct 39.1 MCV 90 MCH 31.0 MCHC 34.5 RDW 15.1 H Plt Count 267 Seg Neutrophils % 72.7 Sodium 130.3 L Potassium 4.0 Chloride 94 L Carbon Dioxide 27 Anion Gap 9 BUN 35 H Creatinine 1.94 H Est GFR ( Amer) 41 L Glucose 101 Calcium 8.9 Total Bilirubin 0.8 AST 29 Alkaline Phosphatase 102 Total Protein 7.1 Albumin 4.0 Assessment and Plan - Diagnosis (1) Metastatic renal cell carcinoma Qualifiers: Laterality: right Qualified Code(s): C64.1 - Malignant neoplasm of right kidney, except renal pelvis Is this a current diagnosis for this admission?: Yes Plan: Unconfirmed by tissue biopsy however patient prefers nonaggressive, noninvasive management, considering hospice. Given advanced COPD, dementia and physical debility. Follow-up hospice consult, supportive care and pain management (2) COPD (chronic obstructive pulmonary disease) Qualifiers: COPD type: unspecified COPD Qualified Code(s): J44.9 - Chronic obstructive pulmonary disease, unspecified Is this a current diagnosis for this admission?: Yes Plan: Supplemental oxygen, albuterol and Atrovent. (3) Dementia Qualifiers: Dementia type: unspecified type Dementia behavioral disturbance: without behavioral disturbance Qualified Code(s): F03.90 - Unspecified dementia without behavioral disturbance Is this a current diagnosis for this admission?: Yes Plan: Supportive care (4) Chronic kidney disease Qualifiers: Chronic kidney disease stage: stage 3 (moderate) Qualified Code(s): N18.3 - Chronic kidney disease, stage 3 (moderate) Is this a current diagnosis for this admission?: Yes Plan: At baseline no evidence for ureteral obstruction, avoid nephrotoxic meds and doses follow-up chemistry - Time Time Spent with patient: 25-34 minutes - Inpatient Certification Medical Necessity: Need Close Monitoring Due to Risk of Patient Decompensation
[2019-12-28 06:54] LABS: PLATELET COUNT 242 10^3/uL (150-450)
--- NOTE | 2019-12-28 08:36 | PDOC CONSULTATION ---
Consultation Consult Date: 12/28/19 Attending physician:: ISABEL VAUGHN Provider Consulted: QUIANA MATTHEWS Consult reason:: Patient with likely stage IV renal cell carcinoma with liver metastasis here with extreme weakness History of Present Illness Admission Date/PCP: 12/27/19 20:16 RICHARD DENNIS MD Patient complains of: Weakness, fatigue, lower extremity edema, hematuria History of Present Illness: MARY MEYER is a 79 year old male with what appears to be a stage IV renal cell carcinoma, originally presented about 6 weeks ago with right hydronephrosis and had a stent placed and was going to get ureteroscopy, stent exchange and biopsy of what appeared to be a uret ureteral mass, on recent CT this week he had multiple liver mets seen that was new from the previous imaging done about 3 months ago. He has lost about 15 pounds, and does have what appears to be a significant amount of dementia. His about 2 years ago and since then it has been a slow decline but the decline has been more rapid over the last 3 months. His family lives in [place], his daughter, name is Jillian Ferguson Home phone [phone], cell phone [phone], I spoke with his granddaughter this morning and gave him an update on his situation. The patient himself does not want any aggressive therapy and wants to be comfortable. His family confirmed that that is what he told them as well. Unfortunately, however he does not have any caregivers at home. Past Medical History Cardiac Medical History: Reports: Hypertension Denies: Myocardial Infarction Pulmonary Medical History: Reports: Chronic Obstructive Pulmonary Disease (COPD) Denies: Asthma Neurological Medical History: Denies: Seizures GI Medical History: Denies: Hepatitis, Hiatal Hernia Psychiatric Medical History: Reports: Alcohol Dependency, Depression, Tobacco Dependency Hematology: Denies: Anemia, Sickle Cell Disease Past Surgical History Past Surgical History: Denies: Pacemaker Social History Lives with: Alone Smoking Status: Current Every Day Smoker Electronic Cigarette use?: No Frequency of Alcohol Use: Heavy Hx Recreational Drug Use: No Drugs: None Hx Prescription Drug Abuse: No - Advance Directive Resuscitation Status: Do Not Resuscitate Family History Family History: Hypertension Parental Family History Reviewed: Yes Children Family History Reviewed: Yes Sibling(s) Family History Reviewed.: Yes Medication/Allergy Home Medications: No Home Medications 02/08/20 Allergies/Adverse Reactions: No Known Allergies Allergy (Verified 12/27/19 17:54) Review of Systems ROS unobtainable: Due to mental status Physical Exam Vital Signs: Temp Pulse Resp BP Pulse Ox 98.2 F 78 16 148/63 H 100 12/28/19 07:44 12/28/19 07:44 12/28/19 07:44 12/28/19 07:44 12/28/19 07:44 Intake & Output 12/27/19 12/28/19 12/29/19 06:59 06:59 06:59 Intake Total 120 Output Total 800 Balance -680 Weight 83.2 kg General appearance: PRESENT: no acute distress, well-developed, well-nourished Head exam: PRESENT: atraumatic, normocephalic Eye exam: PRESENT: conjunctiva pink, EOMI, PERRLA. ABSENT: scleral icterus Ear exam: PRESENT: normal external ear exam Mouth exam: PRESENT: moist, tongue midline Neck exam: ABSENT: carotid bruit, JVD, lymphadenopathy, thyromegaly Respiratory exam: PRESENT: clear to auscultation samuel. ABSENT: rales, rhonchi, wheezes Cardiovascular exam: PRESENT: RRR. ABSENT: diastolic murmur, rubs, systolic murmur Pulses: PRESENT: normal dorsalis pedis pul Vascular exam: PRESENT: normal capillary refill GI/Abdominal exam: PRESENT: normal bowel sounds, soft. ABSENT: distended, guarding, mass, organolmegaly, rebound, tenderness Rectal exam: PRESENT: deferred Extremities exam: PRESENT: full ROM. ABSENT: calf tenderness, clubbing, pedal edema Neurological exam: PRESENT: alert, awake, oriented to person, oriented to place, oriented to time, oriented to situation, CN II-XII grossly intact. ABSENT: motor sensory deficit Psychiatric exam: PRESENT: appropriate affect, normal mood. ABSENT: homicidal ideation, suicidal ideation Skin exam: PRESENT: dry, intact, warm. ABSENT: cyanosis, rash Results Laboratory Results: 12/28/19 05:13 12/28/19 05:13 12/27/19 12/27/19 12/28/19 20:05 20:05 05:13 WBC 10.3 6.7 RBC 4.36 4.10 L Hgb 13.5 12.6 L Hct 39.1 36.9 L MCV 90 90 MCH 31.0 30.7 MCHC 34.5 34.1 RDW 15.1 H 15.0 H Plt Count 267 242 Seg Neutrophils % 72.7 62.3 Sodium 130.3 L Potassium 4.0 Chloride 94 L Carbon Dioxide 27 Anion Gap 9 BUN 35 H Creatinine 1.94 H Est GFR ( Amer) 41 L Glucose 101 Calcium 8.9 Total Bilirubin 0.8 AST 29 Alkaline Phosphatase 102 Total Protein 7.1 Albumin 4.0 12/28/19 05:13 WBC RBC Hgb Hct MCV MCH MCHC RDW Plt Count Seg Neutrophils % Sodium 133.4 L Potassium 4.1 Chloride 98 Carbon Dioxide 29 Anion Gap 6 BUN 29 H Creatinine 1.70 H Est GFR ( Amer) 47 L Glucose 83 Calcium 8.5 Total Bilirubin AST Alkaline Phosphatase Total Protein Albumin Assessment & Plan - Diagnosis (1) Metastatic renal cell carcinoma Qualifiers: Laterality: right Qualified Code(s): C64.1 - Malignant neoplasm of right kidney, except renal pelvis Is this a current diagnosis for this admission?: Yes Plan: Appears to be metastatic renal cell carcinoma, patient confirmed with me that he does not want any aggressive therapy or diagnostics, agree with hospice approach, patient and family will be involved along with hospitalist team, we will help as we can. - Time Time Spent: Greater than 70 Minutes
[2019-12-28] MEDS: NICOTINE 7 MG/24 HR PATCH.TD24 TD SCH (10:52)
[2019-12-28] MEDS: DONEPEZIL HCL 5 MG TABLET PO SCH (10:52)
[2019-12-28] MEDS: DOCUSATE SODIUM 100 MG CAPSULE PO SCH ×2 (10:52→17:50)
--- NOTE | 2019-12-28 11:08 | PDOC PROGRESS REPORT ---
Subjective Progress Note for:: 12/28/19 Subjective:: Patient resting in bed. No acute pain. With pain medicine last night he had the first good night sleep in a long time. He has been having pain consistently lately. Reason For Visit: DEMENTIA INTRACTABLE PAIN Physical Exam Vital Signs: Temp Pulse Resp BP Pulse Ox 98.2 F 78 16 148/63 H 100 12/28/19 07:44 12/28/19 07:44 12/28/19 07:44 12/28/19 07:44 12/28/19 07:44 Intake & Output 12/27/19 12/28/19 12/29/19 06:59 06:59 06:59 Intake Total 120 Output Total 800 Balance -680 Weight 83.2 kg General appearance: PRESENT: no acute distress, cooperative Head exam: PRESENT: atraumatic, normocephalic Eye exam: PRESENT: conjunctiva pink, scleral icterus Ear exam: PRESENT: normal external ear exam. ABSENT: bleeding, drainage Mouth exam: PRESENT: moist, tongue midline Respiratory exam: PRESENT: crackles, prolonged expiratory phas, symmetrical, unlabored. ABSENT: rales, rhonchi, tachypnea, wheezes Cardiovascular exam: PRESENT: RRR, +S1, +S2 GI/Abdominal exam: PRESENT: distended, normal bowel sounds, soft. ABSENT: guarding, tenderness Rectal exam: PRESENT: deferred Gentrourinary exam: ABSENT: indwelling catheter Extremities exam: ABSENT: pedal edema Musculoskeletal exam: PRESENT: ambulatory, normal inspection Neurological exam: PRESENT: alert, awake, oriented to person, oriented to place, oriented to situation, CN II-XII grossly intact, other - Short-term memory loss Psychiatric exam: PRESENT: appropriate affect - He in fact was telling jokes. ABSENT: agitated, anxious Focused psych exam: PRESENT: other - Forgetful. ABSENT: delusional, paranoid, restlessness Results Laboratory Results: 12/28/19 05:13 12/28/19 05:13 12/27/19 12/27/19 12/28/19 20:05 20:05 05:13 WBC 10.3 6.7 RBC 4.36 4.10 L Hgb 13.5 12.6 L Hct 39.1 36.9 L MCV 90 90 MCH 31.0 30.7 MCHC 34.5 34.1 RDW 15.1 H 15.0 H Plt Count 267 242 Seg Neutrophils % 72.7 62.3 Sodium 130.3 L Potassium 4.0 Chloride 94 L Carbon Dioxide 27 Anion Gap 9 BUN 35 H Creatinine 1.94 H Est GFR ( Amer) 41 L Glucose 101 Calcium 8.9 Total Bilirubin 0.8 AST 29 Alkaline Phosphatase 102 Total Protein 7.1 Albumin 4.0 12/28/19 05:13 WBC RBC Hgb Hct MCV MCH MCHC RDW Plt Count Seg Neutrophils % Sodium 133.4 L Potassium 4.1 Chloride 98 Carbon Dioxide 29 Anion Gap 6 BUN 29 H Creatinine 1.70 H Est GFR ( Amer) 47 L Glucose 83 Calcium 8.5 Total Bilirubin AST Alkaline Phosphatase Total Protein Albumin Assessment and Plan - Diagnosis (1) Metastatic renal cell carcinoma Qualifiers: Laterality: right Qualified Code(s): C64.1 - Malignant neoplasm of right kidney, except renal pelvis Is this a current diagnosis for this admission?: Yes Plan: 12/28/2019 The patient has multiple static lesions. He has not had a biopsy. He is working with Dr. Peters. He prefers a nonaggressive approach. He does live alone and his last year. He reports that his daughters are aware of his wishes. I discussed hospice with him. He was hesitant and stated that he wants to talk to his daughter first however I said this is purely informational. They can speak with his daughter. You are not required to make a specific decision during the first encounter. He does have underlying dementia and it would be most prudent to have his daughter on the phone or a separate discussion with her. We talked about services. He would like to use community hospice if possible. He also informed me that he has a stent in his ureter and has an appointment with urology in approximately 10 days. (2) COPD (chronic obstructive pulmonary disease) Qualifiers: COPD type: unspecified COPD Qualified Code(s): J44.9 - Chronic obstructive pulmonary disease, unspecified Is this a current diagnosis for this admission?: Yes Plan: 12/28/2019 Patient is stable at this time. X-ray does reveal flattened diaphragms. Nebulizer treatments are available if needed. (3) Dementia Qualifiers: Dementia type: unspecified type Dementia behavioral disturbance: without behavioral disturbance Qualified Code(s): F03.90 - Unspecified dementia without behavioral disturbance Is this a current diagnosis for this admission?: Yes Plan: 12/28/2019 Continue Aricept (4) Hyponatremia Is this a current diagnosis for this admission?: Yes Plan: 12/28/2019 Unknown etiology however renal failure most likely. Continue to monitor electrolytes. (5) Back pain Qualifiers: Back pain location: low back pain Chronicity: unspecified Back pain laterality: unspecified Sciatica presence: without sciatica Qualified Code(s ): M54.5 - Low back pain Is this a current diagnosis for this admission?: Yes Plan: 12/28/2019 The patient was having back pain. He thought it was the ureteral stent. Further work-up revealed the metastatic cancer. Last night he was given a dose of morphine and his pain was relieved and he reports that he slept better than he has in weeks. I told him he would have analgesia available. (6) Chronic kidney disease Qualifiers: Chronic kidney disease stage: stage 3 (moderate) Qualified Code(s): N18.3 - Chronic kidney disease, stage 3 (moderate) Is this a current diagnosis for this admission?: Yes Plan: 12/28/2019 It appears that his creatinine is slightly higher than baseline. His furosemide is on hold. I will administer gentle saline and recheck numbers tomorrow. (7) Tobacco dependence due to cigarettes Is this a current diagnosis for this admission?: Yes Plan: 12/28/2019 Nicotine patch - Time Time Spent with patient: 15-24 minutes Medications reviewed and adjusted accordingly: Yes Anticipated discharge: Home with Homehealth - With home health for hospice
[2019-12-28] MEDS: MORPHINE SULFATE 10 MG/ML INJ IV PRN (12:47)
[2019-12-28] MEDS ORDERED: NORMAL SALINE 1000 ML 1,000 ML IV PRN (14:33)
[2019-12-28] MEDS: KETOROLAC TROMETHAMINE INJ/PF 30 MG/1 ML SDV IV PRN (23:26)
[2019-12-29 06:05] LABS: ABSOLUTE EOSINOPHILS # (AUTO) 0.2 10^3/uL (0.0-0.6); ABSOLUTE LYMPHOCYTES (AUTO) 1.5 10^3/uL (0.5-4.7); ABSOLUTE MONOCYTES (AUTO) 0.7 10^3/uL (0.1-1.4); ABSOLUTE NEUT (AUTO) 5.9 10^3/uL (1.7-8.2); BASOPHILS % (AUTO) 0.6 % (0-2); EOSINOPHILS % (AUTO) 2.6 % (0-6); HEMATOCRIT 38.6 % (37.9-51.0); HEMOGLOBIN 13.2 g/dL (13.5-17.0); LYMPHOCYTES % (AUTO) 18.6 % (13-45); MEAN CORPUSCULAR HEMOGLOBIN 30.6 pg (27.0-33.4); MEAN CORPUSCULAR HGB CONC 34.2 g/dL (32.0-36.0); MEAN CORPUSCULAR VOLUME 90 fl (80-97); PLATELET COUNT 257 10^3/uL (150-450); SEGMENTED NEUTROPHILS % (AUTO) 70.2 % (42-78); TOTAL CELLS COUNTED % (AUTO) 100 %; WHITE BLOOD COUNT 8.3 10^3/uL (4.0-10.5)
[2019-12-29 06:24] LABS: ALBUMIN 3.3 g/dL (3.5-5.0); ANION GAP 6 (5-19); BLOOD UREA NITROGEN 25 mg/dL (7-20); CALCIUM 8.8 mg/dL (8.4-10.2); CARBON DIOXIDE 29 mmol/L (22-30); CHLORIDE 98 mmol/L (98-107); GLUCOSE 86 mg/dL (75-110); PHOSPHORUS 3.6 mg/dL (2.5-4.5); POTASSIUM 4.3 mmol/L (3.6-5.0)
[2019-12-29] MEDS: HEPARIN SOD (PORCINE) 5,000 UNIT/ML 1 ML VIAL SUBCUT SCH ×3 (06:57→21:57)
--- NOTE | 2019-12-29 09:51 | PDOC PROGRESS REPORT ---
Subjective Progress Note for:: 12/29/19 Subjective:: Patient appears stable. Dr. Peters was at the bedside during our encounter. He became quite tearful during our discussion. His pain is slightly better controlled and after reviewing the mechanism of the pain patch he is in agreement for a trial dose. Reason For Visit: DEMENTIA INTRACTABLE PAIN Physical Exam Vital Signs: Temp Pulse Resp BP Pulse Ox 97.9 F 71 18 155/75 H 100 12/29/19 08:04 12/29/19 08:04 12/29/19 08:04 12/29/19 08:04 12/29/19 08:04 Intake & Output 12/28/19 12/29/19 12/30/19 06:59 06:59 06:59 Intake Total 120 1100 1000 Output Total 800 2450 Balance -680 -1350 1000 Weight 83.2 kg 86.8 kg General appearance: PRESENT: cooperative, mild distress - The patient was somewhat tearful began discussing discharge and family. He tells me that he is estranged from his son but he thinks his stepdaughter informed his son of his current status. He is also asking when he can go home. We are working on caregivers through community hospice as the patient will be enrolling in hospice., well-developed Head exam: PRESENT: atraumatic, normocephalic Eye exam: PRESENT: conjunctiva pink, EOMI. ABSENT: scleral icterus Ear exam: PRESENT: normal external ear exam. ABSENT: bleeding, drainage Mouth exam: PRESENT: moist, tongue midline Neck exam: PRESENT: full ROM. ABSENT: carotid bruit, JVD Respiratory exam: PRESENT: clear to auscultation samuel, symmetrical, unlabored. ABSENT: rales, rhonchi, tachypnea, wheezes Cardiovascular exam: PRESENT: RRR, +S1, +S2. ABSENT: diastolic murmur, irregular rhythm, systolic murmur GI/Abdominal exam: PRESENT: distended, normal bowel sounds, soft. ABSENT: guarding, tenderness Rectal exam: PRESENT: deferred Extremities exam: PRESENT: pedal edema, +1 edema Musculoskeletal exam: PRESENT: ambulatory Neurological exam: PRESENT: alert, awake, oriented to person, oriented to place, oriented to situation, CN II-XII grossly intact, other - Mild forgetfulness. ABSENT: altered Psychiatric exam: PRESENT: depressed. ABSENT: agitated, anxious Focused psych exam: ABSENT: delusional, paranoid, restlessness Skin exam: PRESENT: dry, normal color, warm. ABSENT: rash Results Laboratory Results: 12/29/19 05:30 12/29/19 05:30 12/29/19 12/29/19 05:30 05:30 WBC 8.3 RBC 4.30 L Hgb 13.2 L Hct 38.6 MCV 90 MCH 30.6 MCHC 34.2 RDW 15.0 H Plt Count 257 Seg Neutrophils % 70.2 Sodium 133.3 L Potassium 4.3 Chloride 98 Carbon Dioxide 29 Anion Gap 6 BUN 25 H Creatinine 1.57 H Est GFR ( Amer) 52 L Glucose 86 Calcium 8.8 Phosphorus 3.6 Albumin 3.3 L Assessment and Plan - Diagnosis (1) Metastatic renal cell carcinoma Qualifiers: Laterality: right Qualified Code(s): C64.1 - Malignant neoplasm of right kidney, except renal pelvis Is this a current diagnosis for this admission?: Yes Plan: 12/28/2019 The patient has multiple metastatic lesions. He has not had a biopsy. He is working with Dr. Peters. He prefers a nonaggressive approach. He does live alone and his last year. He reports that his daughters are aware of his wishes. I discussed hospice with him. He was hesitant and stated that he wants to talk to his daughter first however I said this is purely i nformational. They can speak with his daughter. You are not required to make a specific decision during the first encounter. He does have underlying dementia and it would be most prudent to have his daughter on the phone or a separate discussion with her. We talked about services. He would like to use community hospice if possible. He also informed me that he has a stent in his ureter and has an appointment with urology in approximately 10 days. 12/29/2019 The patient is relatively comfortable. He will be transitioning to home hospice several days. I spoke with Luz from community hospice and she feels that caregivers and hospice service can be in place for Tuesday. She also informed me that the patient's stepdaughter will be traveling from [place] to be with him. (2) COPD (chronic obstructive pulmonary disease) Qualifiers: COPD type: unspecified COPD Qualified Code(s): J44.9 - Chronic obstructive pulmonary disease, unspecified Is this a current diagnosis for this admission?: Yes Plan: 12/28/2019 Patient is stable at this time. X-ray does reveal flattened diaphragms. Nebulizer treatments are available if needed. 12/29/2019 Currently stable. As needed medications are available. (3) Dementia Qualifiers: Dementia type: unspecified type Dementia behavioral disturbance: without behavioral disturbance Qualified Code(s): F03.90 - Unspecified dementia without behavioral disturbance Is this a current diagnosis for this admission?: Yes Plan: 12/28/2019 Continue Aricept 12/29/2019 Continue Aricept. Dementia appears to be mild. (4) Hyponatremia Is this a current diagnosis for this admission?: Yes Plan: 12/28/2019 Unknown etiology however renal failure most likely. Continue to monitor electrolytes. 12/29/2019 Currently sodium is 133. We will continue to monitor. (5) Back pain Qualifiers: Back pain location: low back pain Chronicity: unspecified Back pain laterality: unspecified Sciatica presence: without sciatica Qualified Code(s): M54.5 - Low back pain Is this a current diagnosis for this admission?: Yes Plan: 12/28/2019 The patient was having back pain. He thought it was the ureteral stent. Further work-up revealed the metastatic cancer. Last night he was given a dose of morphine and his pain was relieved and he reports that he slept better than he has in weeks. I told him he would have analgesia available. 12/29/2019 He is getting relief with intermittent medication dosing. We are going to try a low-dose fentanyl patch. (6) Chronic kidney disease Qualifiers: Chronic kidney disease stage: stage 3 (moderate) Qualified Code(s): N18.3 - Chronic kidney disease, stage 3 (moderate) Is this a current diagnosis for this admission?: Yes Plan: 12/28/2019 It appears that his creatinine is slightly higher than baseline. His furosemide is on hold. I will administer gentle saline and recheck numbers tomorrow. 12/29/2019 He did receive gentle IV fluids. We held his furosemide yesterday. His serum creatinine improved from 1.94 back to 1.57 which is more like his baseline. His BUN also improved from 35 down to 25. (7) Tobacco dependence due to cigarettes Is this a current diagnosis for this admission?: Yes Plan: 12/28/2019 Nicotine patch 12/29/2019 He told me that by 10:00 in the morning history of she had 1/2 pack to 1 pack of cigarettes. He states that he does not feel the need at this current minute but he knows that once he gets in his car is going to want a cigarette. We will continue with nicotine patch while in the hospital. - Time Time Spent with patient: 15-24 minutes Medications reviewed and adjusted accordingly: Yes Anticipated discharge: Home
[2019-12-29] MEDS ORDERED: FENTANYL 12 MCG/HR PATCH.TD72 TD SCH (10:00)
--- NOTE | 2019-12-29 10:03 | PDOC PROGRESS REPORT ---
Subjective Progress Note for:: 12/29/19 Subjective:: Patient still having pain on and off, we discussed initiating fentanyl patch today. Discussed with the patient that we had an extensive discussion with his daughter and granddaughter yesterday, and daughter mentioned that he may have long-term care insurance that may help with putting and caregivers. The family had reached out to hospice agency and has been in discussion with regional transfer liaison locally. They are looking into what sort of long-term care insurance he has and what sort of caregivers can be placed at home. Reason For Visit: DEMENTIA INTRACTABLE PAIN Physical Exam Vital Signs: Temp Pulse Resp BP Pulse Ox 97.9 F 71 18 155/75 H 100 12/29/19 08:04 12/29/19 08:04 12/29/19 08:04 12/29/19 08:04 12/29/19 08:04 Intake & Output 12/28/19 12/29/19 12/30/19 06:59 06:59 06:59 Intake Total 120 1100 1000 Output Total 800 2450 Balance -680 -1350 1000 Weight 83.2 kg 86.8 kg General appearance: PRESENT: no acute distress, well-developed, well-nourished Head exam: PRESENT: atraumatic, normocephalic Eye exam: PRESENT: conjunctiva pink, EOMI, PERRLA. ABSENT: scleral icterus Ear exam: PRESENT: normal external ear exam Mouth exam: PRESENT: moist, tongue midline Neck exam: ABSENT: carotid bruit, JVD, lymphadenopathy, thyromegaly Respiratory exam: PRESENT: clear to auscultation samuel. ABSENT: rales, rhonchi, wheezes Cardiovascular exam: PRESENT: RRR. ABSENT: diastolic murmur, rubs, systolic murmur Pulses: PRESENT: normal dorsalis pedis pul Vascular exam: PRESENT: normal capillary refill GI/Abdominal exam: PRESENT: normal bowel sounds, soft. ABSENT: distended, guarding, mass, organolmegaly, rebound, tenderness Rectal exam: PRESENT: deferred Extremities exam: PRESENT: full ROM. ABSENT: calf tenderness, clubbing, pedal edema Neurological exam: PRESENT: alert, awake, oriented to person, oriented to place, oriented to time, oriented to situation, CN II-XII grossly intact. ABSENT: motor sensory deficit Psychiatric exam: PRESENT: appropriate affect, normal mood. ABSENT: homicidal ideation, suicidal ideation Skin exam: PRESENT: dry, intact, warm. ABSENT: cyanosis, rash Results Laboratory Results: 12/29/19 05:30 12/29/19 05:30 12/29/19 12/29/19 05:30 05:30 WBC 8.3 RBC 4.30 L Hgb 13.2 L Hct 38.6 MCV 90 MCH 30.6 MCHC 34.2 RDW 15.0 H Plt Count 257 Seg Neutrophils % 70.2 Sodium 133.3 L Potassium 4.3 Chloride 98 Carbon Dioxide 29 Anion Gap 6 BUN 25 H Creatinine 1.57 H Est GFR ( Amer) 52 L Glucose 86 Calcium 8.8 Phosphorus 3.6 Albumin 3.3 L Assessment & Plan - Diagnosis (1) Metastatic renal cell carcinoma Qualifiers: Laterality: right Qualified Code(s): C64.1 - Malignant neoplasm of right kidney, except renal pelvis Is this a current diagnosis for this admission?: Yes Plan: No further therapy planned, trying to work on getting together home hospice but we need caregivers in. He is unsafe to go home until this happens. - Time Time Spent with patient: 25-34 minutes
[2019-12-29] MEDS: DOCUSATE SODIUM 100 MG CAPSULE PO SCH ×2 (10:17→17:56)
[2019-12-29] MEDS: DONEPEZIL HCL 5 MG TABLET PO SCH (10:17)
[2019-12-29] MEDS: NICOTINE 7 MG/24 HR PATCH.TD24 TD SCH (10:17)
[2019-12-29] MEDS ORDERED: FUROSEMIDE 40 MG TABLET PO ONE (12:47)
[2019-12-29] MEDS: KETOROLAC TROMETHAMINE INJ/PF 30 MG/1 ML SDV IV PRN (19:05)
[2019-12-29] MEDS ORDERED: HYDRALAZINE HCL INJ/PF 20 MG/1 ML SDV IV ONE (21:30)
[2019-12-30 05:26] LABS: ALBUMIN 3.3 g/dL (3.5-5.0); ANION GAP 5 (5-19); BLOOD UREA NITROGEN 25 mg/dL (7-20); CALCIUM 8.9 mg/dL (8.4-10.2); CARBON DIOXIDE 31 mmol/L (22-30); CHLORIDE 97 mmol/L (98-107); GLUCOSE 85 mg/dL (75-110); PHOSPHORUS 3.5 mg/dL (2.5-4.5); POTASSIUM 4.7 mmol/L (3.6-5.0)
[2019-12-30] MEDS: HEPARIN SOD (PORCINE) 5,000 UNIT/ML 1 ML VIAL SUBCUT SCH (05:55)
[2019-12-30] MEDS: NICOTINE 7 MG/24 HR PATCH.TD24 TD SCH (09:26)
[2019-12-30] MEDS: DOCUSATE SODIUM 100 MG CAPSULE PO SCH (09:27)
[2019-12-30] MEDS: DONEPEZIL HCL 5 MG TABLET PO SCH (09:27)
[2019-12-30] MEDS ORDERED: FUROSEMIDE 40 MG TABLET PO SCH (10:00)
--- NOTE | 2019-12-30 10:15 | PDOC DISCHARGE SUMMARY ---
Impression - Admit/DC Date/PCP Admission Date/Primary Care Provider: 12/27/19 20:16 RICHARD DENNIS MD Discharge Date: 12/30/19 - Discharge Diagnosis (1) Metastatic renal cell carcinoma Is this a current diagnosis for this admission?: Yes (2) COPD (chronic obstructive pulmonary disease) Is this a current diagnosis for this admission?: Yes (3) Dementia Is this a current diagnosis for this admission?: Yes (4) Hyponatremia Is this a current diagnosis for this admission?: Yes (5) Back pain Is this a current diagnosis for this admission?: Yes (6) Chronic kidney disease Is this a current diagnosis for this admission?: Yes (7) Tobacco dependence due to cigarettes Is this a current diagnosis for this admission?: Yes - Additional Information Resuscitation Status: Do Not Resuscitate Discharge Diet: Regular, Other (Comments) - Stay well-hydrated Discharge Activity: Activity As Tolerated, Balance Activity w/Rest Referrals: RICHARD DENNIS MD [Primary Care Provider] - Follow up as needed Prescriptions: Fentanyl [Duragesic 12 Mcg/Hr Transdermal Patch] 1 each TD Q3D 30 Days #10 patch.td72 Oxycodone HCl/Acetaminophen [Oxycodon-Acetaminophen 7.5-325] 1 each PO Q6 PRN #20 tablet PRN Reason: For Breakthrough Pain Home Medications: Betamethasone Dipropionate 15 gm TP BID 12/28/19 Docusate Sodium [Colace 100 mg Capsule] 100 mg PO BID 12/28/19 Donepezil HCl [Aricept 5 mg Tablet] 5 mg PO DAILY 12/28/19 Furosemide [Lasix 40 mg Tablet] 40 mg PO DAILY 12/28/19 Hydroxyzine Hcl 25mg 25 mg PO QHS 12/28/19 Triamcinolone Acetonide [Aristocort 0.1% Ointment] 1 applic TP BID 12/28/19 Docusate Sodium [Colace 100 mg Capsule] 100 mg PO BID capsule 12/30/19 Donepezil HCl [Aricept 5 mg Tablet] 5 mg PO DAILY tablet 12/30/19 Fentanyl [Duragesic 12 Mcg/Hr Transdermal Patch] 1 each TD Q3D 30 Days #10 patch.td72 12/30/19 Nicotine [Nicoderm 7 mg/24 Hr Transdermal Patch] 1 each TD DAILY patch.td24 12/30/19 Oxycodone HCl/Acetaminophen [Oxycodon-Acetaminophen 7.5-325] 1 each PO Q6 PRN #20 tablet 12/30/19 History of Present Illiness History of Present Illness: MARY MEYER is a 79 year old male with a past medical history of COPD, al cohol and tobacco dependence, right renal mass with right ureteral stent, deep vein thrombosis, dementia and physical debility. He presents with complaint of urinary catheter dysfunction, generalized weakness and back pain. Work-up reveals increased right renal mass of 6 x 2 x 5 cm with likely widespread hepatic metastasis. Patient confirms CODE STATUS of DNR/DNI, denies depression, admits to medication nonadherence stating he cannot remember what they are for or when to take them. With intractable pain and failure to thrive he is referred to the hospitalist for admission. Hospital Course Hospital Course: (1) Metastatic renal cell carcinoma Qualifiers: Laterality: right Qualified Code(s): C64.1 - Malignant neoplasm of right kidney, except renal pelvis Is this a current diagnosis for this admission?: Yes Plan: 12/28/2019 The patient has multiple metastatic lesions. He has not had a biopsy. He is working with Dr. Peters. He prefers a nonaggressive approach. He does live alone and his last year. He reports that his daughters are aware of his wishes. I discussed hospice with him. He was hesitant and stated that he wants to talk to his daughter first however I said this is purely informational. They can speak with his daughter. You are not required to make a specific decision during the first encounter. He does have underlying dementia and it would be most prudent to have his daughter on the phone or a separate discussion with her. We talked about services. He would like to use community hospice if possible. He also informed me that he has a stent in his ureter and has an appointment with urology in approximately 10 days. 12/29/2019 The patient is relatively comfortable. He will be transitioning to home hospice several days. I spoke with Luz from [facility] and she feels that caregivers and hospice service can be in place for Tuesday. She also informed me that the patient's stepdaughter will be traveling from [place] to be with him. 12/30/2019 I spoke with his granddaughter. His daughter will be arriving tomorrow. They are aware of discharged home. Hospice will enroll the patient tomorrow. (2) COPD (chronic obstructive pulmonary disease) Qualifiers: COPD type: unspecified COPD Qualified Code(s): J44.9 - Chronic obstructive pulmonary disease, unspecified Is this a current diagnosis for this admission?: Yes Plan: 12/28/2019 Patient is stable at this time. X-ray does reveal flattened diaphragms. Nebulizer treatments are available if needed. 12/29/2019 Currently stable. As needed medications are available. 12/30/2019 The patient admits that he will continue to smoke. With his terminal diagnosis I did not try to convince him otherwise. (3) Dementia Qualifiers: Dementia type: unspecified type Dementia behavioral disturbance: without behavioral disturbance Qualified Code(s): F03.90 - Unspecified dementia without behavioral disturbance Is this a current diagnosis for this admission?: Yes Plan: 12/28/2019 Continue Aricept 12/29/2019 Continue Aricept. Dementia appears to be mild. (4) Hyponatremia Is this a current diagnosis for this admission?: Yes Plan: 12/28/2019 Unknown etiology however renal failure most likely. Continue to monitor electrolytes. 12/29/2019 Currently sodium is 133. We will continue to monitor. 12/30/2019 Serum sodium has been low but stable. No specific intervention at this time. (5) Back pain Qualifiers: Back pain location: low back pain Chronicity: unspecified Back pain laterality: unspecified Sciatica presence: without sciatica Qualified Code(s): M54.5 - Low back pain Is this a current diagnosis for this admission?: Yes Plan: 12/28/2019 The patient was having back pain. He thought it was the ureteral stent. Further work-up revealed the metastatic cancer. Last night he was given a dose of morphine and his pain was relieved and he reports that he slept better than he has in weeks. I told him he would have analgesia available. 12/29/2019 He is getting relief with intermittent medication dosing. We are going to try a low-dose fentanyl patch. 12/30/2019 Trial of fentanyl patch. I have also sent a prescription for Percocet tablets for breakthrough pain. (6) Chronic kidney disease Qualifiers: Chronic kidney disease stage: stage 3 (moderate) Qualified Code(s): N18.3 - Chronic kidney disease, stage 3 (moderate) Is this a current diagnosis for this admission?: Yes Plan: 12/28/2019 It appears that his creatinine is slightly higher than baseline. His furosemide is on hold. I will administer gentle saline and recheck numbers tomorrow. 12/29/2019 He did receive gentle IV fluids. We held his furosemide yesterday. His serum creatinine improved from 1.94 back to 1.57 which is more like his baseline. His BUN also improved from 35 down to 25. 12/30/2019 I have encouraged the patient to remain well-hydrated. (7) Tobacco dependence due to cigarettes Is this a current diagnosis for this admission?: Yes Plan: 12/28/2019 Nicotine patch 12/29/2019 He told me that by 10:00 in the morning history of she had 1/2 pack to 1 pack of cigarettes. He states that he does not feel the need at this current minute but he knows that once he gets in his car is going to want a cigarette. We will continue with nicotine patch while in the hospital. 12/30/2019 See #2 above Physical Exam Vital Signs: Temp Pulse Resp BP Pulse Ox 97.5 F 92 20 147/71 H 100 12/30/19 08:08 12/30/19 08:08 12/30/19 08:08 12/30/19 08:08 12/30/19 08:08 Intake & Output 12/29/19 12/30/19 12/31/19 06:59 06:59 06:59 Intake Total 1100 2870 Output Total 2450 3400 Balance -1350 -530 Weight 86.8 kg 85.6 kg General appearance: PRESENT: no acute distress, cooperative Head exam: PRESENT: atraumatic, normocephalic Respiratory exam: PRESENT: clear to auscultation samuel, symmetrical, unlabored. ABSENT: rales, rhonchi, tachypnea, wheezes Cardiovascular exam: PRESENT: RRR, +S1, +S2 GI/Abdominal exam: PRESENT: normal bowel sounds, soft. ABSENT: distended, guarding, tenderness Neurological exam: PRESENT: alert, awake, oriented to person, oriented to place, oriented to situation Results Laboratory Results: WBC 8.3 10^3/uL (4.0-10.5) 12/29/19 05:30 RBC 4.30 10^6/uL (4.35-5.55) L 12/29/19 05:30 Hgb 13.2 g/dL (13.5-17.0) L 12/29/19 05:30 Hct 38.6 % (37.9-51.0) 12/29/19 05:30 MCV 90 fl (80-97) 12/29/19 05:30 MCH 30.6 pg (27.0-33.4) 12/29/19 05:30 MCHC 34.2 g/dL (32.0-36.0) 12/29/19 05:30 RDW 15.0 % (11.5-14.0) H 12/29/19 05:30 Plt Count 257 10^3/uL (150-450) 12/29/19 05:30 Lymph % (Auto) 18.6 % (13-45) 12/29/19 05:30 Catron % (Auto) 8.0 % (3-13) 12/29/19 05:30 Eos % (Auto) 2.6 % (0-6) 12/29/19 05:30 Baso % (Auto) 0.6 % (0-2) 12/29/19 05:30 Absolute Neuts (auto) 5.9 10^3/uL (1.7-8.2) 12/29/19 05:30 Absolute Lymphs (auto) 1.5 10^3/uL (0.5-4.7) 12/29/19 05:30 Absolute Monos (auto) 0.7 10^3/uL (0.1-1.4) 12/29/19 05:30 Absolute Eos (auto) 0.2 10^3/uL (0.0-0.6) 12/29/19 05:30 Absolute Basos (auto) 0.0 10^3/uL (0.0-0.2) 12/29/19 05:30 Seg Neutrophils % 70.2 % (42-78) 12/29/19 05:30 PT 13.2 SEC (11.4-15.4) 12/27/19 20:05 INR 1.00 12/27/19 20:05 APTT 29.1 SEC (23.5-35.8) 12/27/19 20:05 Sodium 132.5 mmol/L (137-145) L 12/30/19 03:00 Potassium 4.7 mmol/L (3.6-5.0) 12/30/19 03:00 Chloride 97 mmol/L (98-107) L 12/30/19 03:00 Carbon Dioxide 31 mmol/L (22-30) H 12/30/19 03:00 Anion Gap 5 (5-19) 12/30/19 03:00 BUN 25 mg/dL (7-20) H 12/30/19 03:00 Creatinine 1.53 mg/dL (0.52-1.25) H 12/30/19 03:00 Est GFR ( Amer) 53 (>60) L 12/30/19 03:00 Est GFR (MDRD) Non-Af 44 (>60) L 12/30/19 03:00 Glucose 85 mg/dL (75-110) 12/30/19 03:00 Calcium 8.9 mg/dL (8.4-10.2) 12/30/19 03:00 Phosphorus 3.5 mg/dL (2.5-4.5) 12/30/19 03:00 Total Bilirubin 0.8 mg/dL (0.2-1.3) 12/27/19 20:05 Direct Bilirubin 0.1 mg/dL (0.0-0.4) 12/27/19 20:05 Neonat Total Bilirubin Not Reportable 12/27/19 20:05 Neonat Direct Bilirubin Not Reportable 12/27/19 20:05 Neonat Indirect Bili Not Reportable 12/27/19 20:05 AST 29 U/L (17-59) 12/27/19 20:05 ALT 15 U/L (<50) 12/27/19 20:05 Alkaline Phosphatase 102 U/L (38-126) 12/27/19 20:05 Total Protein 7.1 g/dL (6.3-8.2) 12/27/19 20:05 Albumin 3.3 g/dL (3.5-5.0) L 12/30/19 03:00 Plan Health Concerns: Metastatic renal cell carcinoma. Patient going home on hospice. Plan of Treatment: The patient will be discharging home to hospice. He prefers to go home without his Avery catheter. We will discontinue the catheter and if the patient is unable to urinate we will need to replace it. He does have a right ureteral stent but the value of returning to the urologist is questionable. Hospice services will enroll the patient tomorrow. Family will be arriving from [place] tomorrow as well. Fentanyl prescription and Percocet for breakthrough pain prescription were sent to [facility] in [place] Goals: Home with hospice. Eventually to transition to comfort measures. He might consider inpatient hospice if it is in reasonable distance from his home. He expressed no interest in going to a hospice house near [place] where his daughter is. Time Spent: Greater than 30 Minutes Stroke Is this a Stroke Patient?: No Acute Heart Failure - Is this a Heart Failure Patient?: No
[2019-12-30 10:26] VITALS: BP 170/86
== END 2019-12-30 11:50 | disposition hospice, home (50) | DRG 687 ==
LOC: ER 17:30 → EH 20:16 → 4N 21:47
PROVIDERS: ADMIT Internal Medicine; ATTEND Hospitalist
DX: C64.1 Malignant neoplasm of right kidney, except renal pelvis (principal); E87.1 Hypo-osmolality and hyponatremia; C78.7 Secondary malignant neoplasm of liver and intrahepatic bile duct; Z68.1 Body mass index [BMI] 19.9 or less, adult; R62.7 Adult failure to thrive; N18.3 Chronic kidney disease, stage 3 (moderate); F03.90 Unspecified dementia, unspecified severity, without behavioral disturbance, psychotic disturbance, mood disturbance, and anxiety; F17.210 Nicotine dependence, cigarettes, uncomplicated; J44.9 Chronic obstructive pulmonary disease, unspecified; Z51.5 Encounter for palliative care; Z66 Do not resuscitate; Z79.899 Other long term (current) drug therapy; Z86.718 Personal history of other venous thrombosis and embolism; R53.81 Other malaise; Z91.14 Patient's other noncompliance with medication regimen; M54.5 Low back pain; I12.9 Hypertensive chronic kidney disease with stage 1 through stage 4 chronic kidney disease, or unspecified chronic kidney disease; F32.9 Major depressive disorder, single episode, unspecified; Z82.49 Family history of ischemic heart disease and other diseases of the circulatory system
CPT/HCPCS: 36415; 51702; 70450; 74176; 80048; 80053; 80069; 81001; 85025; 85610; 85730; 87070; 87086; 87088; 87186; 99281; 99284; J0360; J1644; J1885; J2270; J3490; J7030